=== PATIENT | male | born 1955 | race Hispanic/Latino ===

== ENCOUNTER 2018-08-13 09:32 | Inpatient (IN) | payer BC ==
--- NOTE | 2018-08-13 10:11 | ED PDOC ---
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 Patient informs noticing bright red blood with his bowel movement this morning, consistent with hemorrhoids, however, the bleeding progressively worsened as patient noticed wetness in his underwear. On aggrenox, plavix, asa 325 s/p stroke. Patient reports similar symptoms in the past but states symptoms are worse today. Patient denies any other associated somatic complaints. Patient denies any fevers, chills, headache, dizziness, chest pain, shortness of breath, dyspnea on exertion, cough, abdominal pain, nausea, vomiting, diarrhea, back pain, neck pain, or any other complaints. Time/Duration: 1-3 hours Symptom Onset: Gradual Symptom Course: Unchanged Activities at Onset: Light Context: Home Past Medical History - Provider Review Nursing Documentation Reviewed: Yes - Cardiac Hx Hypertension: Yes - Neurological HX Cerebrovascular Accident: Yes (x 3) - Psychiatric Hx Substance Use: No - Surgical History Other/Comment: colorectal sx to repair rupture - Anesthesia Hx Anesthesia: Yes Hx Anesthesia Reactions: No Hx Malignant Hyperthermia: No Family/Social History - Physician Review Nursing Documentation Reviewed: Yes Family/Social History: No Known Family HX Smoking Status: Never Smoked Hx Alcohol Use: No Hx Substance Use: No Allergies/Home Meds Allergies/Adverse Reactions: Allergies No Known Allergies Allergy (Verified 08/13/18 09:48) Home Medications: Home Meds Medication Instructions Recorded Confirmed Aspirin [Aspirin EC] 325 mg PO DAILY 08/13/18 08/13/18 Aspirin/Dipyridamole [Aggrenox 1 cap PO BID 08/13/18 08/13/18 25-200 mg] Atorvastatin [Lipitor] 20 mg PO DAILY 08/13/18 08/13/18 Clopidogrel [Plavix] 75 mg PO DAILY 08/13/18 08/13/18 Lisinopril [Zestril] 2.5 mg PO DAILY 08/13/18 08/13/18 Metoprolol Tartrate [Lopressor] 50 mg PO DAILY 08/13/18 08/13/18 amLODIPine [Norvasc] 5 mg PO DAILY 08/13/18 08/13/18 Review of Systems - Physician Review All systems were reviewed & negative as marked: Yes - Review of Systems Constitutional: Normal. absent: Fevers Eyes: Normal ENT: Normal Respiratory: Normal. absent: SOB, Cough Cardiovascular: Normal. absent: Chest Pain, Palpitations Gastrointestinal: Hematochezia, Other (Rectal bleeding). absent: Abdominal Pain, Stool Changes, Diarrhea, Nausea, Vomiting, Appetite Changes, Hematemesis Genitourinary Male: Normal. absent: Dysuria, Hematuria, Urinary Output Changes Musculoskeletal: Normal. absent: Back Pain, Neck Pain Skin: Normal. absent: Rash Neurological: Normal. absent: Headache, Dizziness Endocrine: Normal. absent: Polyuria Hemo/Lymphatic: Normal Psychiatric: Normal. absent: Anxiety Physical Exam Vital Signs Reviewed: Yes Vital Signs Temp Pulse Resp BP Pulse Ox 08/13/18 09:32 98.6 F 82 18 136/80 96 Temperature: Afebrile Blood Pressure: Normal Pulse: Regular Respiratory Rate: Normal Appearance: Positive for: Well-Appearing, Non-Toxic, Comfortable Pain Distress: None Mental Status: Positive for: Alert and Oriented X 3 - Systems Exam Head: Present: Atraumatic, Normocephalic Pupils: Present: PERRL Extroacular Muscles: Present: EOMI Conjunctiva: Present: Normal Respiratory/Chest: Present: Clear to Auscultation, Good Air Exchange. No: Respiratory Distress, Accessory Muscle Use Cardiovascular: Present: Regular Rate and Rhythm, Normal S1, S2. No: Murmurs Abdomen: Present: Normal Bowel Sounds. No: Tenderness, Distention, Peritoneal Signs, Rebound, Guarding Rectal: Present: Gross Blood (bright red blood noted), Hemorrhoids (external hemorrhoids noted), Normal Rectal Tone. No: Rectal Tenderness, Fissures Back: Present: Normal Inspection. No: CVA Tenderness Upper Extremity: Present: Normal Inspection, Normal ROM, NORMAL PULSES, Neurovascularly Intact, Capillary Refill < 2s. No: Cyanosis, Edema, Temperature Abnormalties Lower Extremity: Present: Normal Inspection, NORMAL PULSES, Normal ROM, Neurovascularly Intact, Capillary Refill < 2 s. No: Edema, Temperature Abnormalties Neurological: Present: GCS=15, CN II-XII Intact, Speech Normal, Motor Func Grossly Intact, Normal Sensory Function, Gait Normal Skin: Present: Warm, Dry, Normal Color. No: Rashes Lymphatic: No: Cervical Adenopathy Psychiatric: Present: Alert, Oriented x 3, Normal Insight, Normal Concentration, Normal Affect, Normal Mood Medical Decision Making ED Course and Treatment: 08/13/18 10:10 Initial Plan: * CBC, CMP * Coags * Type and Screen * EKG * CXR * CTAbd/Pelvis with IV contrast * Rectal Exam * Reassess and Disposition EKG rate 73; NSR; Normal intervals; No STEMI, nonspecific ST/T wave changes Labwork unremarkable CT Abd/Pelvis non specific inflammatory findings CXR unremarkable Will admit for GI consult and to trend h/h secondary to surgical history. [id number] Fraser who accepted patient for inpatient admission with diagnosis of GI bleed. Asks for general surgery and GI consults. - Lab Interpretations Lab Results: 08/13/18 10:05 08/13/18 10:05 Lab Results 08/13/18 12:00: Blood Type Confirm A POSITIVE 08/13/18 11:00: Blood Type A POSITIVE, Antibody Screen Negative, BBK History Checked No verified bt 08/13/18 10:29: Urine Color Yellow, Urine Appearance Clear, Urine pH 6.0, Ur Specific Cass 1.020, Urine Protein Negative, Urine Glucose (UA) Negative, Urine Ketones Negative, Urine Blood Trace-intact H, Urine Nitrate Negative, Urine Bilirubin Negative, Urine Urobilinogen 0.2, Ur Leukocyte Esterase Negative, Urine RBC 5 - 10 H, Urine WBC 2 - 5, Ur Epithelial Cells 6 - 8 H 08/13/18 10:05: Troponin I < 0.01 08/13/18 10:05: PT 13.0 H, INR 1.15, APTT 29.9 08/13/18 10:05: Sodium 140, Potassium 4.6, Chloride 110 H, Carbon Dioxide 25, Anion Gap 10, BUN 25 H, Creatinine 1.0, Est GFR ( Amer) > 60, Est GFR (Non-Af Amer) > 60, Random Glucose 88, Calcium 9.4, Total Bilirubin 0.6, AST 25, ALT 33, Alkaline Phosphatase 59, Total Protein 6.7, Albumin 3.7, Globulin 3.0, Albumin/Globulin Ratio 1.3 08/13/18 10:05: WBC 10.9, RBC 5.79, Hgb 16.2, Hct 48.8, MCV 84.3, MCH 28.0, MCHC 33.2, RDW 13.0, Plt Count 278, MPV 9.9, Neut % (Auto) 64.4, Lymph % (Auto) 21.9 L, Callahan % (Auto) 10.5 H, Eos % (Auto) 2.8, Baso % (Auto) 0.4, Lymph # (Auto) 2.4, Callahan # (Auto) 1.2 H, Eos # (Auto) 0.3, Baso # (Auto) 0.04, Absolute Neuts (auto) 7.03 H I have reviewed the lab results: Yes - RAD Interpretation Narrative RAD Interpretations (Text): 08/13/18 13:43 Chest X-ray reviewed by radiologist, shows: FINDINGS: LUNGS: No active pulmonary disease. PLEURA: No significant pleural effusion identified, no pneumothorax apparent. CARDIOVASCULAR: No aortic atherosclerotic calcification present. Normal cardiac size. No pulmonary vascular congestion. OSSEOUS STRUCTURES: No significant abnormalities. VISUALIZED UPPER ABDOMEN: Normal. OTHER FINDINGS: None. IMPRESSION: No acute cardiopulmonary disease appreciated. 08/13/18 14:11 CT of Abdomen/Pelvis reviewed by radiologist, shows: FINDINGS: LOWER THORAX: Heart size is within range of normal. No significant pericardial effusion. Small hiatal hernia of with wall thickening of distal esophagus likely due to protrusion gastric mucosa. Esophagitis not excluded. Mild passive/dependent type atelectasis both posterior lower lung herndon. No evidence of effusion or basilar pneumothorax. LIVER: Liver is mildly enlarged measuring over 19 cm in CC dimension. Mild fatty hepatic infiltration GALLBLADDER AND BILE DUCTS: Gallbladder is incompletely distended which presumably accounts for slight thick-walled appearance. No evidence of intraluminal gallbladder calculi. PANCREAS: Pancreas is atrophic and fatty replaced.. There appears to be two duodenal diverticulum adjacent to the pancreatic head containing air and fluid. SPLEEN: Unremarkable. No splenomegaly. ADRENALS: Unremarkable. KIDNEYS AND URETERS: Unremarkable. No stone or hydronephrosis. BLADDER: Urinary bladder is incompletely distended which may in part account for slight thick-walled appearance. Muscular hypertrophy presumably contributes. Correlation with urinalysis recommended to exclude cystitis or other intrinsic wall lesion. REPRODUCTIVE: Prostate gland is enlarged measuring approximately 5.6 cm in transverse dimension. Findings likely due to BPH however correlation with PSA recommended to exclude prostate carcinoma. APPENDIX: Normal-appearing appendix. BOWEL: Evaluation of the bowel is somewhat limited due to the lack of oral contrast material. The stomach is incompletely distended with slight thick-walled appearance. There appears to be 2 duodenal diverticulum adjacent to the pancreatic head containing air and fluid. The remaining visualized loops of small bowel exhibit normal contour and caliber with no evidence of acute mechanical small bowel obstruction. There is a moderate amount of stool seen within the cecum ascending and most of the transverse colon with lesser amount seen throughout the remaining colon including the rectum. Findings suggest mild fecal retention/constipation.. Probable anastomosis involving the proximal aspect of a redundant sigmoid colon. Questionable mild thickening of the distal rectal/anal junction. Clinical correlation with physical exam recommended. Proctoscopy or sigmoidoscopy may be prudent. PERITONEUM: Unremarkable. No fluid collection. No free air. LYMPH NODES: Unremarkable. No enlarged lymph nodes. VASCULATURE: Unremarkable. No aortic aneurysm. No aortic atherosclerotic calcification or mural plaque present. BONES: Multilevel degenerative spondylosis of the lower thoracic and lumbar spine. No acute compression fractures no retropulsed fragments. OTHER FINDINGS: None. IMPRESSION: Findings consistent with constipation. There appears to be some minimal wall thickening of the distal rectal/anal junction. Clinical correlation with physical exam recommended. Proctoscopy/sigmoidoscopy may be prudent for further evaluation if necessary. There is an anastomosis seen involving the proximal aspect of a redundant sigmoid colon Suspect 2 duodenal diverticula adjacent to the pancreatic head containing air- fluid Mild hepatomegaly with fatty infiltration. Note made of apparent air within the distal common bile duct and prox suspected air in a slightly prominent proximal pancreatic duct Enlarged prostate gland likely due to BPH however correlation with PSA recommended. Audiology Director: Radiologist - EKG Interpretation EKG Interpretation (Text): Rate 73l NSR; Normal intervals; No STEMI, nonspecific ST/T wave changes Interpreted by ED Physician: Yes Type: 12 lead EKG Comparison: Similar to previous EKG - PA / MAID SUPERVISOR / Resident Statement MD/DO has reviewed & agrees with the documentation as recorded. MD/DO has examined the patient and agrees with the treatment plan. - Scribe Statement The provider has reviewed the documentation as recorded by the Scribe Dasha Pike. All medical record entries made by the Kassandraibeduardo were at my direction and personally dictated by me. I have reviewed the chart and agree that the record accurately reflects my personal performance of the history, physical exam, medical decision making, and the department course for this patient. I have also personally directed, reviewed, and agree with the discharge instructions and disposition. Disposition/Present on Arrival - Present on Arrival Any Indicators Present on Arrival: No History of DVT/PE: No History of Uncontrolled Diabetes: No Urinary Catheter: No History of Decub. Ulcer: No History Surgical Site Infection Following: None - Disposition Have Diagnosis and Disposition been Completed?: Yes Diagnosis: Lower GI bleed Disposition: HOSPITALIZED Disposition Time: 16:35 Patient Plan: Admission Patient Problems: Current Active Problems Problem Status Onset Lower GI bleed Acute Condition: STABLE
[2018-08-13 10:16] LABS: BASO # 0.04 K/mm3 (0.0-2.0); BASO % 0.4 % (0.0-3.0); EOS # 0.3 (0.0-0.7); EOS % 2.8 % (1.5-5.0); HEMOGLOBIN 16.2 g/dL (14.0-18.0); LYMPH # 2.4 (1.2-3.4); LYMPH % 21.9 % (22.0-35.0); MEAN CELL VOLUME 84.3 fl (80.0-105.0); MEAN CORPUSCULAR HGB CONC 33.2 g/dl (31.0-37.0); MEAN PLATELET VOLUME 9.9 fl (7.0-11.0); MONO # 1.2 (0.1-0.6); MONO % 10.5 % (1.0-6.0); RBC 5.79 10^6/uL (3.5-6.1); WHITE BLOOD COUNT 10.9 10^3/uL (4.5-11.0)
[2018-08-13 10:22] LABS: INR 1.15; PARTIAL THROMBOPLASTIN TIME 29.9 Seconds (26.9-38.3)
[2018-08-13 10:30] LABS: BLOOD UREA NITROGEN 25 mg/dL (7-21); CALCIUM 9.4 mg/dL (8.4-10.5); GFR NON-AFRICAN AMERICAN > 60
[2018-08-13 10:34] LABS: ALB/GLOB RATIO 1.3 (1.1-1.8); ALBUMIN 3.7 g/dL (3.0-4.8); ALT/SGPT 33 U/L (7-56); AST/SGOT 25 U/L (17-59)
--- NOTE | 2018-08-13 11:31 | CARD ---
APPROVED REPORT Date of service: 08/13/2018 EKG Measurement Heart [id number] <Conclusion> Normal sinus rhythm Inferior infarct Old. Abnormal ECG
--- NOTE | 2018-08-13 11:40 | RAD ---
Date of service: 08/13/2018 HISTORY: rectal bleeding COMPARISON: No prior. FINDINGS: LUNGS: No active pulmonary disease. PLEURA: No significant pleural effusion identified, no pneumothorax apparent. CARDIOVASCULAR: No aortic atherosclerotic calcification present. Normal cardiac size. No pulmonary vascular congestion. OSSEOUS STRUCTURES: No significant abnormalities. VISUALIZED UPPER ABDOMEN: Normal. OTHER FINDINGS: None. IMPRESSION: No acute cardiopulmonary disease appreciated.
--- NOTE | 2018-08-13 14:09 | CT ---
Date of service: 08/13/2018 PROCEDURE: CT Abdomen and Pelvis. HISTORY: rectal bleeding COMPARISON: None. TECHNIQUE: Contiguous axial images of the abdomen and pelvis. Oral contrast was administered. No IV contrast given. Coronal and Sagittal reformats generated. Radiation dose: Total exam DLP = 997.18 mGy-cm. This CT exam was performed using one or more of the following dose reduction techniques: Automated exposure control, adjustment of the mA and/or kV according to patient size, and/or use of iterative reconstruction technique. FINDINGS: LOWER THORAX: Heart size is within range of normal. No significant pericardial effusion. Small hiatal hernia of with wall thickening of distal esophagus likely due to protrusion gastric mucosa. Esophagitis not excluded. Mild passive/dependent type atelectasis both posterior lower lung herndon. No evidence of effusion or basilar pneumothorax. LIVER: Liver is mildly enlarged measuring over 19 cm in CC dimension. Mild fatty hepatic infiltration GALLBLADDER AND BILE DUCTS: Gallbladder is incompletely distended which presumably accounts for slight thick-walled appearance. No evidence of intraluminal gallbladder calculi. PANCREAS: Pancreas is atrophic and fatty replaced.. There appears to be two duodenal diverticulum adjacent to the pancreatic head containing air and fluid. SPLEEN: Unremarkable. No splenomegaly. ADRENALS: Unremarkable. KIDNEYS AND URETERS: Unremarkable. No stone or hydronephrosis. BLADDER: Urinary bladder is incompletely distended which may in part account for slight thick-walled appearance. Muscular hypertrophy presumably contributes. Correlation with urinalysis recommended to exclude cystitis or other intrinsic wall lesion. REPRODUCTIVE: Prostate gland is enlarged measuring approximately 5.6 cm in transverse dimension. Findings likely due to BPH however correlation with PSA recommended to exclude prostate carcinoma. APPENDIX: Normal-appearing appendix. BOWEL: Evaluation of the bowel is somewhat limited due to the lack of oral contrast material. The stomach is incompletely distended with slight thick-walled appearance. There appears to be 2 duodenal diverticulum adjacent to the pancreatic head containing air and fluid. The remaining visualized loops of small bowel exhibit normal contour and caliber with no evidence of acute mechanical small bowel obstruction. There is a moderate amount of stool seen within the cecum ascending and most of the transverse colon with lesser amount seen throughout the remaining colon including the rectum. Findings suggest mild fecal retention/constipation.. Probable anastomosis involving the proximal aspect of a redundant sigmoid colon. Questionable mild thickening of the distal rectal/anal junction. Clinical correlation with physical exam recommended. Proctoscopy or sigmoidoscopy may be prudent. PERITONEUM: Unremarkable. No fluid collection. No free air. LYMPH NODES: Unremarkable. No enlarged lymph nodes. VASCULATURE: Unremarkable. No aortic aneurysm. No aortic atherosclerotic calcification or mural plaque present. BONES: Multilevel degenerative spondylosis of the lower thoracic and lumbar spine. No acute compression fractures no retropulsed fragments. OTHER FINDINGS: None. IMPRESSION: Findings consistent with constipation. There appears to be some minimal wall thickening of the distal rectal/anal junction. Clinical correlation with physical exam recommended. Proctoscopy/sigmoidoscopy may be prudent for further evaluation if necessary. There is an anastomosis seen involving the proximal aspect of a redundant sigmoid colon Suspect 2 duodenal diverticula adjacent to the pancreatic head containing air-fluid Mild hepatomegaly with fatty infiltration. Note made of apparent air within the distal common bile duct and prox suspected air in a slightly prominent proximal pancreatic duct Enlarged prostate gland likely due to BPH however correlation with PSA recommended.
--- NOTE | 2018-08-13 16:48 | CP.PCM.CON ---
History of Present Illness - History of Present Illness History of Present Illness: Surgery consult note, Dr Fletcher Reason for consult: rectal bleeding 63 y/o male with PMH of CVA x3 on AC, colorectal surgery s/p colon rupture and sepsis presents to ED with 1 day of bright red rectal bleeding while having bowel movement . Patient Past Patient History - Past Social History Smoking Status: Never Smoked - CARDIAC Hx Hypertension: Yes - NEUROLOGICAL HX Cerebrovascular Accident: Yes (x 3) - PSYCHIATRIC Hx Substance Use: No - SURGICAL HISTORY Other/Comment: colorectal sx to repair rupture - ANESTHESIA Hx Anesthesia: Yes Hx Anesthesia Reactions: No Hx Malignant Hyperthermia: No Meds Allergies/Adverse Reactions: Allergies Allergy/AdvReac Type Severity Reaction Status Date / Time No Known Allergies Allergy Verified 08/13/18 09:48 Results - Vital Signs Recent Vital Signs: Last Vital Signs Temp 98.2 F 08/13/18 15:41 Pulse 62 08/13/18 15:41 Resp 18 08/13/18 15:41 BP 118/77 08/13/18 15:41 Pulse Ox 98 08/13/18 15:41 - Labs Result Diagrams: 08/13/18 10:05 08/13/18 10:05 Labs: Laboratory Results - last 24 hr 08/13/18 08/13/18 08/13/18 10:05 10:05 10:05 WBC 10.9 RBC 5.79 Hgb 16.2 Hct 48.8 MCV 84.3 MCH 28.0 MCHC 33.2 RDW 13.0 Plt Count 278 MPV 9.9 Neut % (Auto) 64.4 Lymph % (Auto) 21.9 L Arthur % (Auto) 10.5 H Eos % (Auto) 2.8 Baso % (Auto) 0.4 Lymph # (Auto) 2.4 Arthur # (Auto) 1.2 H Eos # (Auto) 0.3 Baso # (Auto) 0.04 Absolute Neuts (auto) 7.03 H PT 13.0 H INR 1.15 APTT 29.9 Sodium 140 Potassium 4.6 Chloride 110 H Carbon Dioxide 25 Anion Gap 10 BUN 25 H Creatinine 1.0 Est GFR ( Amer) > 60 Est GFR (Non-Af Amer) > 60 Random Glucose 88 Calcium 9.4 Total Bilirubin 0.6 AST 25 ALT 33 Alkaline Phosphatase 59 Troponin I Total Protein 6.7 Albumin 3.7 Globulin 3.0 Albumin/Globulin Ratio 1.3 Blood Type Blood Type Confirm Antibody Screen BBK History Checked 08/13/18 08/13/18 08/13/18 10:05 11:00 12:00 WBC RBC Hgb Hct MCV MCH MCHC RDW Plt Count MPV Neut % (Auto) Lymph % (Auto) Arthur % (Auto) Eos % (Auto) Baso % (Auto) Lymph # (Auto) Arthur # (Auto) Eos # (Auto) Baso # (Auto) Absolute Neuts (auto) PT INR APTT Sodium Potassium Chloride Carbon Dioxide Anion Gap BUN Creatinine Est GFR ( Amer) Est GFR (Non-Af Amer) Random Glucose Calcium Total Bilirubin AST ALT Alkaline Phosphatase Troponin I < 0.01 Total Protein Albumin Globulin Albumin/Globulin Ratio Blood Type A POSITIVE Blood Type Confirm A POSITIVE Antibody Screen Negative BBK History Checked No verified bt
[2018-08-13] MEDS: Dextrose 5%/0.45% NS 1,000 ML IV SCH (18:04)
[2018-08-13 18:51] LABS: URINE BILIRUBIN NEGATIVE (NEGATIVE); URINE BLOOD TRACE-INTACT (NEGATIVE); URINE GLUCOSE (UA) NEGATIVE (NEGATIVE); URINE LEUKOCYTE ESTERASE NEGATIVE Leu/uL (NEGATIVE); URINE PROTEIN NEGATIVE mg/dL (<30 mg/dL); URINE UROBILINOGEN 0.2 E.U./dL (<1 E.U./dL)
[2018-08-13 19:09] LABS: URINE APPEARANCE CLEAR (CLEAR); URINE COLOR YELLOW (YELLOW)
--- NOTE | 2018-08-13 20:33 | CP.PCM.CON ---
History of Present Illness - History of Present Illness History of Present Illness: Surgery Consult note- Dr. Fletcher Reason for Consult: Rectal Bleeding 63M pmhx significant for CVA x 4 last one 4 months ago, on blood thinners including aggrenox, plavix, asa 325, hx of abd surgery 25 years ago from "infected rectum" and removed colon and colostomy, and reversal x2, recently [address] [facility] w/ bright red blood coming out of his rectum. Patient states that he was walking around when he felt warmth, the noticed blood. He denies light headedness, dizziness, shortness of breath. Patient never had symptoms like this in the past. Denies any local trauma to the area. 12 pt ROS conducted, negative otherwise stated above PMH: HTN, HLD, CVA w/ minimal residual left sided weakness of on AC (aggrenox, plavix, ASA 325) PSH: Colon surgery x4. "infected colon". Colostomy and reversal 25 years ago. T hen Removal of colon colostomy and reversal appox 15 years ago ALL: NKDA SocialHx: denies tobacco, etoh, recreational drug use FH: non-contributory Review of Systems - Review of Systems All systems: reviewed and no additional remarkable complaints except - Constitutional Constitutional: As Per HPI Past Patient History - Past Social History Smoking Status: Never Smoked - CARDIAC Hx Hypertension: Yes - NEUROLOGICAL HX Cerebrovascular Accident: Yes (x 3) - PSYCHIATRIC Hx Substance Use: No - SURGICAL HISTORY Other/Comment: colorectal sx to repair rupture - ANESTHESIA Hx Anesthesia: Yes Hx Anesthesia Reactions: No Hx Malignant Hyperthermia: No Meds Allergies/Adverse Reactions: Allergies Allergy/AdvReac Type Severity Reaction Status Date / Time No Known Allergies Allergy Verified 08/13/18 09:48 - Medications Medications: Current Medications Amlodipine Besylate (Norvasc) 5 mg PO DAILY [facility] Last Admin: 08/13/18 18:04 Dose: Not Given Atorvastatin Calcium (Lipitor) 20 mg PO DIN [facility] Last Admin: 08/13/18 18:04 Dose: Not Given Dextrose/Sodium Chloride (Dextrose 5%/0.45% Ns 1000 Ml) 1,000 mls @ 75 mls/hr IV .[id number] [facility] Last Admin: 08/13/18 18:04 Dose: 75 mls/hr Lisinopril (Zestril) 2.5 mg PO DAILY [facility] Last Admin: 08/13/18 18:04 Dose: Not Given Metoprolol Tartrate (Lopressor) 50 mg PO DAILY [facility] Last Admin: 08/13/18 18:04 Dose: Not Given Polyethylene Glycol (Miralax) 17 gm PO DAILY [facility] Physical Exam - Constitutional Appears: Non-toxic, No Acute Distress - Head Exam Head Exam: ATRAUMATIC - Eye Exam Eye Exam: EOMI. absent: Scleral icterus - ENT Exam ENT Exam: Mucous Membranes Moist - Respiratory Exam Respiratory Exam: NORMAL BREATHING PATTERN. absent: Accessory Muscle Use, Respiratory Distress - Cardiovascular Exam Cardiovascular Exam: REGULAR RHYTHM. absent: Bradycardia, Tachycardia - GI/Abdominal Exam GI & Abdominal Exam: Soft. absent: Firm, Guarding, Hernia, Tenderness Additional comments: Midline incision well healed. Old stoma location well healed. no induration or bleeding - Rectal Exam Additional comments: No bright red blood on rectal exam. No palpable masses likely fissure at the posterior portion of the anus - Extremities Exam Extremities exam: Negative for: calf tenderness - Neurological Exam Neurological exam: Alert, Oriented x3 - Psychiatric Exam Psychiatric exam: Normal Affect - Skin Skin Exam: Intact, Warm Results - Vital Signs Recent Vital Signs: Last Vital Signs Temp 98.8 F 08/13/18 17:37 Pulse 62 08/13/18 17:37 Resp 18 08/13/18 17:37 BP 124/78 08/13/18 17:37 Pulse Ox 98 08/13/18 17:37 - Labs Result Diagrams: 08/13/18 10:05 08/13/18 10:05 Labs: Laboratory Results - last 24 hr 08/13/18 08/13/18 08/13/18 10:05 10:05 10:05 WBC 10.9 RBC 5.79 Hgb 16.2 Hct 48.8 MCV 84.3 MCH 28.0 MCHC 33.2 RDW 13.0 Plt Count 278 MPV 9.9 Neut % (Auto) 64.4 Lymph % (Auto) 21.9 L Thomas % (Auto) 10.5 H Eos % (Auto) 2.8 Baso % (Auto) 0.4 Lymph # (Auto) 2.4 Thomas # (Auto) 1.2 H Eos # (Auto) 0.3 Baso # (Auto) 0.04 Absolute Neuts (auto) 7.03 H PT 13.0 H INR 1.15 APTT 29.9 Sodium 140 Potassium 4.6 Chloride 110 H Carbon Dioxide 25 Anion Gap 10 BUN 25 H Creatinine 1.0 Est GFR ( Amer) > 60 Est GFR (Non-Af Amer) > 60 Random Glucose 88 Calcium 9.4 Total Bilirubin 0.6 AST 25 ALT 33 Alkaline Phosphatase 59 Troponin I Total Protein 6.7 Albumin 3.7 Globulin 3.0 Albumin/Globulin Ratio 1.3 Urine Color Urine Appearance Urine pH Ur Specific [place] Urine Protein Urine Glucose (UA) Urine Ketones Urine Blood Urine Nitrate Urine Bilirubin Urine Urobilinogen Ur Leukocyte Esterase Urine RBC Urine WBC Ur Epithelial Cells Blood Type Blood Type Confirm Antibody Screen BBK History Checked 08/13/18 08/13/18 08/13/18 10:05 10:29 11:00 WBC RBC Hgb Hct MCV MCH MCHC RDW Plt Count MPV Neut % (Auto) Lymph % (Auto) Thomas % (Auto) Eos % (Auto) Baso % (Auto) Lymph # (Auto) Thomas # (Auto) Eos # (Auto) Baso # (Auto) Absolute Neuts (auto) PT INR APTT Sodium Potassium Chloride Carbon Dioxide Anion Gap BUN Creatinine Est GFR ( Amer) Est GFR (Non-Af Amer) Random Glucose Calcium Total Bilirubin AST ALT Alkaline Phosphatase Troponin I < 0.01 Total Protein Albumin Globulin Albumin/Globulin Ratio Urine Color Yellow Urine Appearance Clear Urine pH 6.0 Ur Specific [place] 1.020 Urine Protein Negative Urine Glucose (UA) Negative Urine Ketones Negative Urine Blood Trace-intact H Urine Nitrate Negative Urine Bilirubin Negative Urine Urobilinogen 0.2 Ur Leukocyte Esterase Negative Urine RBC 5 - 10 H Urine WBC 2 - 5 Ur Epithelial Cells 6 - 8 H Blood Type A POSITIVE Blood Type Confirm Antibody Screen Negative BBK History Checked No verified bt 08/13/18 12:00 WBC RBC Hgb Hct MCV MCH MCHC RDW Plt Count MPV Neut % (Auto) Lymph % (Auto) Thomas % (Auto) Eos % (Auto) Baso % (Auto) Lymph # (Auto) Thomas # (Auto) Eos # (Auto) Baso # (Auto) Absolute Neuts (auto) PT INR APTT Sodium Potassium Chloride Carbon Dioxide Anion Gap BUN Creatinine Est GFR ( Amer) Est GFR (Non-Af Amer) Random Glucose Calcium Total Bilirubin AST ALT Alkaline Phosphatase Troponin I Total Protein Albumin Globulin Albumin/Globulin Ratio Urine Color Urine Appearance Urine pH Ur Specific [place] Urine Protein Urine Glucose (UA) Urine Ketones Urine Blood Urine Nitrate Urine Bilirubin Urine Urobilinogen Ur Leukocyte Esterase Urine RBC Urine WBC Ur Epithelial Cells Blood Type Blood Type Confirm A POSITIVE Antibody Screen BBK History Checked Assessment & Plan - Assessment and Plan (Free Text) Assessment: 63M pmhx for CVA on multiple blood thinners, admitted for rectal bleeding; Plan: - repeat CBC - IVF - trend H/H - Transfuse PRN - will need colonoscopy; recommend GI consult - will continue to monitor closely - no acute surgical intervention at this time - d/w Dr. Fletcher [facility]
--- NOTE | 2018-08-13 22:04 | HP ---
DATE OF EXAM: 08/13/2018 HISTORY OF PRESENT ILLNESS: The patient is a 63-year-old, the patient came to emergency room because of two-day history of rectal bleeding complained abdominal discomfort; however, he has a history of hemorrhoid. The patient does have history of colorectal surgery and he said he has some colon resection that his colon ruptured and he also had . Denies any nausea or vomiting. No history of weight loss. PAST MEDICAL HISTORY: Significant for: 1. CVA thrice. 2. Hypertension. 3. Hyperlipidemia. ALLERGIES: THE PATIENT IS NOT ALLERGIC TO ANY MEDICATIONS. MEDICATIONS AT HOME: He is on: 1. Aggrenox. 2. Aspirin 325 daily. 3. Norvasc 5 mg daily. 4. Metoprolol 50 mg daily. 5. Lisinopril 2.5 daily. 6. Atorvastatin 20 mg daily. 7. Plavix 75 daily. SOCIAL HISTORY: Denies smoking, drinking, or alcohol use. REVIEW OF SYSTEMS: Positive for rectal bleeding, rectal discomfort. PHYSICAL EXAMINATION: GENERAL: He is awake, alert, oriented, and able to communicate. VITAL SIGNS: He is afebrile, pulse 62, respirations 18, and blood pressure 124/78. LUNGS: Bilateral fair airflow. No rhonchi or crackle. HEART: S1 and S2 audible. ABDOMEN: Soft and nontender. No rebound. No guarding. NEUROLOGIC: The patient is awake, alert, oriented, able to communicate, positive bleeding per rectum, but not actively bleeding. LABORATORY DATA: WBC is 10.9, hemoglobin 16, hematocrit 48, and platelets 278. PT 13 and INR 1.15. Chemistry; sodium 140, potassium 4.6, chloride 110, CO2 of 25, BUN 25, and creatinine 1. Blood sugar 88. LFTs are within normal limits. Urine positive, leukocyte negative, and RBC [address] scan of the abdomen and pelvis was done that shows constipation, some minimal wall thickening of the distal rectal-anal junction. There is anastomosis involving the proximal aspect of redundant sigmoid colon and also enlarged prostate due to BPH. ASSESSMENT: 1. Rectal bleeding probably secondary to constipation. 2. History of colorectal cancer. 3. History of cerebrovascular accident. PLAN: We will keep the patient n.p.o. We will give IV fluids. We will hold antiplatelets. Gave him MiraLax, awaiting Gastrointestinal and Surgical evaluation. Adalberto Frasre MD
[2018-08-13 22:55] VITALS: BMI 29.2
[2018-08-13] MEDS ORDERED: Influenza Vaccine 60 mcg/0.5 mL SYR (4YR UP) IM ONE (22:55)
[2018-08-13] MEDS ORDERED: Pneumococcal 23-Valent Vaccine IM ONE (22:55)
[2018-08-14 07:22] LABS: BASO # 0.02 K/mm3 (0.0-2.0); BASO % 0.2 % (0.0-3.0); EOS # 0.4 (0.0-0.7); EOS % 3.9 % (1.5-5.0); HEMOGLOBIN 14.8 g/dL (14.0-18.0); LYMPH # 2.2 (1.2-3.4); LYMPH % 24.7 % (22.0-35.0); MEAN CELL VOLUME 84.6 fl (80.0-105.0); MEAN CORPUSCULAR HEMOGLOBIN 27.2 pg (25.0-35.0); MEAN CORPUSCULAR HGB CONC 32.1 g/dl (31.0-37.0); MEAN PLATELET VOLUME 9.2 fl (7.0-11.0); MONO # 0.6 (0.1-0.6); MONO % 6.8 % (1.0-6.0); RBC 5.45 10^6/uL (3.5-6.1)
[2018-08-14 07:33] LABS: ALB/GLOB RATIO 1.1 (1.1-1.8); ALBUMIN 3.3 g/dL (3.0-4.8); ALT/SGPT 28 U/L (7-56); AST/SGOT 23 U/L (17-59); BLOOD UREA NITROGEN 19 mg/dL (7-21); CALCIUM 8.8 mg/dL (8.4-10.5); GFR NON-AFRICAN AMERICAN > 60
--- NOTE | 2018-08-14 09:46 | CP.PCM.PN ---
Subjective - Date & Time of Evaluation Date of Evaluation: 08/14/18 Time of Evaluation: 07:30 - Subjective Subjective: Surgery progress note, Dr. Fletcher Patient seen and examined at bedside. He reports minimal tinged blood when he wipes after having BM. He is tolerating diet, ambulating OOB and has regular BM. Patient denied fever, chills, abd pain, change in bowel movement. Objective - Vital Signs/Intake and Output Vital Signs (last 24 hours): Temp Pulse Resp BP Pulse Ox 97.6 F 64 20 125/81 98 08/13/18 23:35 08/14/18 05:56 08/13/18 23:35 08/13/18 23:35 08/13/18 23:35 Intake and Output: 08/14/18 08/14/18 06:59 18:59 Intake Total 2039 Balance 2039 - Medications Medications: Current Medications Amlodipine Besylate (Norvasc) 5 mg PO DAILY [facility] Last Admin: 08/13/18 18:04 Dose: Not Given Atorvastatin Calcium (Lipitor) 20 mg PO DIN [facility] Last Admin: 08/13/18 18:04 Dose: Not Given Dextrose/Sodium Chloride (Dextrose 5%/0.45% Ns 1000 Ml) 1,000 mls @ 75 mls/hr IV .[id number] [facility] Last Admin: 08/13/18 18:04 Dose: 75 mls/hr Lisinopril (Zestril) 2.5 mg PO DAILY [facility] Last Admin: 08/13/18 18:04 Dose: Not Given Metoprolol Tartrate (Lopressor) 50 mg PO DAILY [facility] Last Admin: 08/13/18 18:04 Dose: Not Given Polyethylene Glycol (Miralax) 17 gm PO DAILY [facility] - Labs Labs: 08/14/18 07:00 08/14/18 07:00 PT 13.0 SECONDS (9.4-12.5) H 08/13/18 10:05 INR 1.15 08/13/18 10:05 APTT 29.9 Seconds (26.9-38.3) 08/13/18 10:05 - Constitutional Appears: Well, No Acute Distress - Head Exam Head Exam: ATRAUMATIC, NORMAL INSPECTION, NORMOCEPHALIC - Eye Exam Eye Exam: EOMI, Normal appearance, PERRL Pupil Exam: NORMAL ACCOMODATION, PERRL - Respiratory Exam Respiratory Exam: Clear to Ausculation Bilateral, NORMAL BREATHING PATTERN - Cardiovascular Exam Cardiovascular Exam: REGULAR RHYTHM, +S1, +S2. absent: Murmur - GI/Abdominal Exam GI & Abdominal Exam: Soft, Normal Bowel Sounds. absent: Guarding, Rigid, Tenderness, Hernia, Mass, Organomegaly Additional comments: Midline incision well healed. Old stoma location well healed. no induration or bleeding - Rectal Exam Additional comments: multiple perianal skin tags, intact, no erythema, no signs of infection. normal sphincter tone - Extremities Exam Extremities Exam: Full ROM, Normal Capillary Refill, Normal Inspection. absent: Joint Swelling, Pedal Edema - Neurological Exam Neurological Exam: Alert, Awake, Oriented x3 - Psychiatric Exam Psychiatric exam: Normal Affect, Normal Mood - Skin Skin Exam: Dry, Intact, Normal Color, Warm Assessment and Plan - Assessment and Plan (Free Text) Assessment: 63 y/o male with PSH of colectomy/colostomy with reversal x2 admitted for lower GIB CVA x3 last one 4 months ago, on AC (aggrenox, plavix, asa 325) HTN HLD Plan: -patient is hemodynamically stable, afebrile, no leukocytosis and in NAD with no signs of active bleeding -H/H stable, continue to monitor -CT A/P: minimal wall thickening of the distal rectal/anal junction -GI consulted for possible endoscopy -transfuse prn -miralax for constipation -no acute surgical intervention at this time -further recs per surgical attending Dr. Chance Chase,
[2018-08-14] MEDS: POLYETHYLENE GLYCOL 3350 17 GM/Dose PACKET PO SCH (09:49)
[2018-08-14] MEDS: Dextrose 5%/0.45% NS 1,000 ML IV SCH ×2 (10:48→21:07)
--- NOTE | 2018-08-14 11:29 | CP.PCM.CON ---
History of Present Illness - History of Present Illness History of Present Illness: GI Consult Note for Dr. Garcia Reason for Consultation: Rectal Bleeding Patient is a 63 yo M with PMH of CVA x3, HTN, HLD, and perforated colon presents to [facility] due BRBPR prior to admission. Patient denies any prior GI bleeding even ts, fatigue, weakness, fever, or chills. Patient denies any pain associated with rectal bleeding. Patient states that bleeding continued while in the ED, but has stopped since. Patient reports normal, non-melanotic BM last night with no further bleeding. Patient's history significant due to "rectal infection" leading to perforation requiring colon surgery, colostomy, and eventual reversal 25 years ago. Patient states that due to complications of the surgery the anastomosis had to be revised and required another colostomy with eventual reversal about 15 years ago. Patient's last colonoscopy was about 12 years ago at [facility], but he does not remember the results. 12 point ROS reviewed and is neg ative other than what is stated in HPI. PMH: CVA x3, HTN, HLD, perforated colon Surg: Colon surgery, colostomy, reversal x2 All: NKDA SH: Former smoker; denied EtOH and illicit drug use FHx: No GI history Medications reviewed as per [facility] Review of Systems - Review of Systems All systems: reviewed and no additional remarkable complaints except (12 point ROS reviewed and is negative other than what is stated in HPI.) Past Patient History - Past Social History Smoking Status: Never Smoked - CARDIAC Hx Hypertension: Yes - PULMONARY Hx Respiratory Disorders: No - NEUROLOGICAL HX Cerebrovascular Accident: Yes (x 3) - HEENT Hx HEENT Problems: Yes (reading glasses) - RENAL Hx Chronic Kidney Disease: No - ENDOCRINE/METABOLIC Hx Endocrine Disorders: No - HEMATOLOGICAL/ONCOLOGICAL Hx Blood Disorders: Yes (sepsis) - INTEGUMENTARY Hx Dermatological Problems: No - MUSCULOSKELETAL/RHEUMATOLOGICAL Hx Falls: No - GASTROINTESTINAL Hx Gastrointestinal Disorders: Yes (hemorrhoids) Hx Colostomy: Yes Other/Comment: colorectal sx to repair rupture 1993 and 1994 developed sepsis, colostomy reversed 6 months later, the 10 yrs later about 2003, suturres ruptured from prior sx had a colostomy for few months then it was reversed - GENITOURINARY/GYNECOLOGICAL Hx Genitourinary Disorders: No - PSYCHIATRIC Hx Substance Use: No - SURGICAL HISTORY Other/Comment: colorectal sx to repair rupture - ANESTHESIA Hx Anesthesia: Yes Hx Anesthesia Reactions: No Hx Malignant Hyperthermia: No Meds Allergies/Adverse Reactions: Allergies Allergy/AdvReac Type Severity Reaction Status Date / Time No Known Allergies Allergy Verified 08/13/18 09:48 - Medications Medications: Current Medications Amlodipine Besylate (Norvasc) 5 mg PO DAILY [facility] Last Admin: 08/14/18 09:50 Dose: 5 mg Atorvastatin Calcium (Lipitor) 20 mg PO DIN [facility] Last Admin: 08/13/18 18:04 Dose: Not Given Bisacodyl (Dulcolax) 5 mg PO ONCE ONE Stop: 08/14/18 18:01 Dextrose/Sodium Chloride (Dextrose 5%/0.45% Ns 1000 Ml) 1,000 mls @ 75 mls/hr IV .[id number] [facility] Last Admin: 08/14/18 10:48 Dose: 75 mls/hr Lisinopril (Zestril) 2.5 mg PO DAILY [facility] Last Admin: 08/14/18 09:51 Dose: 2.5 mg Metoprolol Tartrate (Lopressor) 50 mg PO DAILY [facility] Last Admin: 08/14/18 09:52 Dose: Not Given Polyethylene Glycol (Miralax) 17 gm PO DAILY [facility] Last Admin: 08/14/18 09:49 Dose: 17 gm Polyethylene Glycol/Electrolytes (Golytely) 4,000 ml PO ONCE ONE Stop: 08/14/18 18:01 Physical Exam - Constitutional Appears: No Acute Distress - Head Exam Head Exam: NORMAL INSPECTION - Eye Exam Eye Exam: Normal appearance - ENT Exam ENT Exam: Mucous Membranes Moist - Neck Exam Neck exam: Positive for: Normal Inspection - Respiratory Exam Respiratory Exam: Clear to Auscultation Bilateral. absent: Rales, Rhonchi, Wheezes - Cardiovascular Exam Cardiovascular Exam: RRR. absent: Diastolic murmur, Gallop, Rubs, Systolic Murmur - GI/Abdominal Exam GI & Abdominal Exam: Soft. absent: Distended, Guarding, Rebound, Tenderness - Rectal Exam Rectal Exam: absent: Black Stool, Bloody Stool Additional comments: no blood appreciated; skin tag - Extremities Exam Extremities exam: Positive for: normal inspection - Back Exam Back exam: NORMAL INSPECTION - Neurological Exam Neurological exam: Alert, Oriented x3 - Psychiatric Exam Psychiatric exam: Normal Affect, Normal Mood - Skin Skin Exam: Normal Color, Warm Results - Vital Signs Recent Vital Signs: Last Vital Signs Temp 97.6 F 08/13/18 23:35 Pulse 65 08/14/18 10:00 Resp 20 08/13/18 23:35 BP 125/78 08/14/18 09:52 Pulse Ox 98 08/13/18 23:35 - Labs Result Diagrams: 08/14/18 07:00 08/14/18 07:00 Labs: Laboratory Results - last 24 hr 08/13/18 08/13/18 08/13/18 10:29 11:00 12:00 WBC RBC Hgb Hct MCV MCH MCHC RDW Plt Count MPV Neut % (Auto) Lymph % (Auto) Carlton % (Auto) Eos % (Auto) Baso % (Auto) Lymph # (Auto) Carlton # (Auto) Eos # (Auto) Baso # (Auto) Absolute Neuts (auto) Sodium Potassium Chloride Carbon Dioxide Anion Gap BUN Creatinine Est GFR ( Amer) Est GFR (Non-Af Amer) Random Glucose Calcium Total Bilirubin AST ALT Alkaline Phosphatase Total Protein Albumin Globulin Albumin/Globulin Ratio Urine Color Yellow Urine Appearance Clear Urine pH 6.0 Ur Specific [place] 1.020 Urine Protein Negative Urine Glucose (UA) Negative Urine Ketones Negative Urine Blood Trace-intact H Urine Nitrate Negative Urine Bilirubin Negative Urine Urobilinogen 0.2 Ur Leukocyte Esterase Negative Urine RBC 5 - 10 H Urine WBC 2 - 5 Ur Epithelial Cells 6 - 8 H Blood Type A POSITIVE Blood Type Confirm A POSITIVE Antibody Screen Negative BBK History Checked No verified bt 08/14/18 08/14/18 07:00 07:00 WBC 9.0 RBC 5.45 Hgb 14.8 Hct 46.1 MCV 84.6 MCH 27.2 MCHC 32.1 RDW 13.0 Plt Count 237 MPV 9.2 Neut % (Auto) 64.4 Lymph % (Auto) 24.7 Carlton % (Auto) 6.8 H Eos % (Auto) 3.9 Baso % (Auto) 0.2 Lymph # (Auto) 2.2 Carlton # (Auto) 0.6 Eos # (Auto) 0.4 Baso # (Auto) 0.02 Absolute Neuts (auto) 5.77 Sodium 138 Potassium 4.1 Chloride 107 Carbon Dioxide 28 Anion Gap 7 L BUN 19 Creatinine 1.0 Est GFR ( Amer) > 60 Est GFR (Non-Af Amer) > 60 Random Glucose 99 Calcium 8.8 Total Bilirubin 0.7 AST 23 ALT 28 Alkaline Phosphatase 61 Total Protein 6.1 Albumin 3.3 Globulin 2.9 Albumin/Globulin Ratio 1.1 Urine Color Urine Appearance Urine pH Ur Specific [place] Urine Protein Urine Glucose (UA) Urine Ketones Urine Blood Urine Nitrate Urine Bilirubin Urine Urobilinogen Ur Leukocyte Esterase Urine RBC Urine WBC Ur Epithelial Cells Blood Type Blood Type Confirm Antibody Screen BBK History Checked Assessment & Plan - Assessment and Plan (Free Text) Assessment: 63 yo M with PMH of CVA, HTN, HLD, and colon perforation presents to [facility] for BRBPR. GI was consulted accordingly. 1. GI bleed 2. H/o CVA on antiplatelets Plan: - Plan for colonoscopy tomorrow - CLD then NPO after midnight - Bowel prep - Hold anti-platelets for now - Further medical management per primary Patient seen and discussed in detail with Dr. Garcia. Carloz Simeon, PGY2
--- NOTE | 2018-08-14 17:21 | PN ---
DATE: 08/14/2018 SUBJECTIVE: The patient is 63 years old, seen and examined. No more rectal bleeding since he was admitted yesterday. The patient states yesterday when he was getting ready for the day, he was shaving, he felt something trickling down his pajamas and when he wiped it, he said he was intermittently having rectal bleeding, but that was normal for him, but yesterday it was too much, so he came to the ER for further evaluation. He does have history of extensive colorectal surgery. I spoke to Dr. Daugherty and he thinks that the patient might have fissures that might be bleeding. Otherwise, there is no active bleeding. PHYSICAL EXAMINATION: VITAL SIGNS: The patient is afebrile, pulse 65, respirations 18, and blood pressure 125/78. LUNGS: Bilateral fair air flow, no rhonchi or crackles. HEART: S1 and S2 audible. ABDOMEN: Soft and nontender. No rebound, no guarding. NEUROLOGIC: The patient is awake, alert, and oriented, able to communicate. LABORATORY DATA: WBC 9, hemoglobin 14, hematocrit 46, and platelets 237. Chemistry; Sodium 138, potassium 4.1, chloride 107, CO2 of 29, BUN 19, creatinine 1, and blood sugar 199. ASSESSMENT: 1. Rectal bleeding, differential is anal fissure versus hemorrhoid versus colonic pathology. This patient has multiple extensive colorectal surgeries. 2. History of cerebrovascular accident. PLAN: We will start the patient on clear liquid diet and then he will be n.p.o. after midnight. We will hold antiplatelet therapy for now. After colonoscopy, further decision will be made. Adalberto Fraser MD
[2018-08-14] MEDS ORDERED: Peg-Electrolyte Oral Soln 4L (Golytely) PO ONE (18:00)
[2018-08-14] MEDS ORDERED: Bisacodyl 5mg EC Tab PO ONE (18:00)
--- NOTE | 2018-08-15 08:17 | PN ---
DATE: 08/13/2018 SUBJECTIVE: He has had a history of rectal bleeding, had two strokes. He is on a powerful anticoagulant. The patient is noted to have dark blood and melenic type stools. Hemoglobin is 16. No blood was given. Vital signs were stable. The SMA-18 is normal. CAT scan of the abdomen and pelvis is examined but personally read. They described it as ____ the patient. Questionable thickening of the rectoanal area, although I do not ____ the liver is enlarged as described with hepatomegaly and fatty infiltration, a large prostate, but is essentially normal for a site of bleeding. The patient was seen by GI, who will plan colonoscopy, upper endoscopy, etc., but for now nothing is planned. Possibly an upper endoscopy in the morning. Pedro Luis Fletcher MD
--- NOTE | 2018-08-15 10:16 | CP.PCM.PN ---
Subjective - Date & Time of Evaluation Date of Evaluation: 08/15/18 Time of Evaluation: 09:45 - Subjective Subjective: Surgery progress note, Dr. Fletcher Patient seen and examined at bedside. He reports no complaints. He is on bowel prep and waiting for colonscopy today. Patient denied fever, chills, abd pain, change in bowel movement. Objective - Vital Signs/Intake and Output Vital Signs (last 24 hours): Temp Pulse Resp BP Pulse Ox 98.0 F 69 18 119/86 97 08/15/18 06:00 08/15/18 06:00 08/15/18 06:00 08/15/18 06:00 08/15/18 06:00 Intake and Output: 08/15/18 08/15/18 06:59 18:59 Intake Total 1200 Output Total 650 Balance 550 - Medications Medications: Current Medications Amlodipine Besylate (Norvasc) 5 mg PO DAILY [facility] Last Admin: 08/14/18 09:50 Dose: 5 mg Atorvastatin Calcium (Lipitor) 20 mg PO DIN [facility] Last Admin: 08/14/18 18:13 Dose: 20 mg Dextrose/Sodium Chloride (Dextrose 5%/0.45% Ns 1000 Ml) 1,000 mls @ 75 mls/hr IV .[id number] [facility] Last Admin: 08/14/18 21:07 Dose: 75 mls/hr Lisinopril (Zestril) 2.5 mg PO DAILY [facility] Last Admin: 08/14/18 09:51 Dose: 2.5 mg Metoprolol Tartrate (Lopressor) 50 mg PO DAILY [facility] Last Admin: 08/14/18 09:52 Dose: Not Given Polyethylene Glycol (Miralax) 17 gm PO DAILY [facility] Last Admin: 08/14/18 09:49 Dose: 17 gm - Labs Labs: 08/14/18 07:00 08/14/18 07:00 PT 13.0 SECONDS (9.4-12.5) H 08/13/18 10:05 INR 1.15 08/13/18 10:05 APTT 29.9 Seconds (26.9-38.3) 08/13/18 10:05 - Additional Findings Additional findings: - Constitutional Appears: Well, No Acute Distress - Head Exam Head Exam: ATRAUMATIC, NORMAL INSPECTION, NORMOCEPHALIC - Eye Exam Eye Exam: EOMI, Normal appearance, PERRL Pupil Exam: NORMAL ACCOMODATION, PERRL - Respiratory Exam Respiratory Exam: Clear to Ausculation Bilateral, NORMAL BREATHING PATTERN - Cardiovascular Exam Cardiovascular Exam: REGULAR RHYTHM, +S1, +S2. absent: Murmur - GI/Abdominal Exam GI & Abdominal Exam: Soft, Normal Bowel Sounds. absent: Guarding, Rigid, Tenderness, Hernia, Mass, Organomegaly Additional comments: Midline incision well healed. Old stoma location well healed. no induration or bleeding - Rectal Exam Additional comments: multiple perianal skin tags, intact, no erythema, no signs of infection. normal sphincter tone - Extremities Exam Extremities Exam: Full ROM, Normal Capillary Refill, Normal Inspection. absent: Joint Swelling, Pedal Edema - Neurological Exam Neurological Exam: Alert, Awake, Oriented x3 - Psychiatric Exam Psychiatric exam: Normal Affect, Normal Mood - Skin Skin Exam: Dry, Intact, Normal Color, Warm Assessment and Plan - Assessment and Plan (Free Text) Assessment: 63 y/o male with PSH of colectomy/colostomy with reversal x2 admitted for lower GIB CVA x3 last one 4 months ago, on AC (aggrenox, plavix, asa 325) HTN HLD Plan: -patient is hemodynamically stable, afebrile, no leukocytosis and in NAD with no signs of active bleeding -colonscopy today by GI. f/u results -H/H stable, continue to monitor -CT A/P: minimal wall thickening of the distal rectal/anal junction -transfuse prn -no acute surgical intervention at this time -further recs per surgical attending Dr. Chance Chase, DO
[2018-08-15] MEDS: Dextrose 5%/0.45% NS 1,000 ML IV SCH ×2 (10:33→23:00)
[2018-08-15] MEDS: POLYETHYLENE GLYCOL 3350 17 GM/Dose PACKET PO SCH (10:46)
--- NOTE | 2018-08-15 13:43 | PN ---
DATE: 08/15/2018 SUBJECTIVE: The patient is 63 years old who came to the emergency room because of rectal bleeding. The patient is on blood thinner because of multiple previous strokes. The patient also has multiple surgeries in his colorectal area that led to colostomy, but it was reversed. The patient states he does have intermittent rectal bleeding, but the day he came to the emergency room, it was dripping a lot of blood, so he came for medical opinion. He is off oral antiplatelets. No active bleeding noted. He is scheduled for colonoscopy today. PHYSICAL EXAMINATION: GENERAL: On examination, he is awake, alert and oriented, n.p.o. for the procedure. VITAL SIGNS: He is afebrile, pulse 86, respirations 18, blood pressure 119/86. LUNGS: Bilateral fair air flow. No rhonchi or crackle. HEART: S1 and S2 audible. ABDOMEN: Soft, nontender, no rebound, no guarding. NEUROLOGIC: The patient is awake, alert, oriented. Able to communicate. EXTREMITIES: Moves all extremities. Bilateral legs, no edema. LABORATORY DATA: CT scan shows thickening in the rectosigmoid area. Enlarged prostate with hepatomegaly and fatty infiltration. ASSESSMENT: 1. Rectal bleeding. 2. History of cerebrovascular accident. 3. Hypertension. 4. Hyperlipidemia. PLAN: Currently, the patient is n.p.o. He is on IV fluids. He was getting colonic prep. His oral anticoagulant is on hold, that will be restarted after the colonoscopy. We will advance his diet if he has no more rectal bleeding. Depending on the results of the colonoscopy, further plans will be made and possibly discharge. Adalberto Fraser MD
[2018-08-15] MEDS ORDERED: Propofol 10 mg/ml Inj (20 ML) ONE (16:48)
[2018-08-15] MEDS ORDERED: ePHEDrine 50 mg/ml Inj ONE (17:38)
[2018-08-15] MEDS ORDERED: Sodium Chloride 0.9% 1,000 ML IV SCH (17:45)
[2018-08-16 01:18] VITALS: O2SAT 96
--- NOTE | 2018-08-16 09:47 | CP.PCM.PN ---
Subjective - Date & Time of Evaluation Date of Evaluation: 08/16/18 Time of Evaluation: 07:20 - Subjective Subjective: Surgery progress note, Dr. Fletcher Patient seen and examined at bedside. He reports no complaints. Patient denied fever, chills, abd pain, change in bowel movement, N/V/D Objective - Vital Signs/Intake and Output Vital Signs (last 24 hours): Temp Pulse Resp BP Pulse Ox 97.7 F 54 L 18 112/78 96 08/16/18 06:00 08/16/18 06:00 08/16/18 06:00 08/16/18 06:00 08/16/18 06:00 Intake and Output: 08/16/18 08/16/18 06:59 18:59 Intake Total 930 Output Total 604 Balance 326 - Medications Medications: Current Medications Amlodipine Besylate (Norvasc) 5 mg PO DAILY [facility] Last Admin: 08/15/18 10:46 Dose: 5 mg Atorvastatin Calcium (Lipitor) 20 mg PO DIN [facility] Last Admin: 08/15/18 17:08 Dose: Not Given Dextrose/Sodium Chloride (Dextrose 5%/0.45% Ns 1000 Ml) 1,000 mls @ 75 mls/hr IV .[id number] [facility] Last Admin: 08/15/18 23:00 Dose: Not Given Lisinopril (Zestril) 2.5 mg PO DAILY [facility] Last Admin: 08/15/18 10:47 Dose: 2.5 mg Metoprolol Tartrate (Lopressor) 50 mg PO DAILY [facility] Last Admin: 08/15/18 10:46 Dose: 50 mg Polyethylene Glycol (Miralax) 17 gm PO DAILY [facility] Last Admin: 08/15/18 10:46 Dose: Not Given - Labs Labs: 08/14/18 07:00 08/14/18 07:00 PT 13.0 SECONDS (9.4-12.5) H 08/13/18 10:05 INR 1.15 08/13/18 10:05 APTT 29.9 Seconds (26.9-38.3) 08/13/18 10:05 Assessment and Plan - Assessment and Plan (Free Text) Assessment: 63 y/o male with PSH of colectomy/colostomy with reversal x2 admitted for lower GIB CVA x3 last one 4 months ago, on AC (aggrenox, plavix, asa 325) HTN HLD Plan: -EGD (08/15) : superficial multiple gastric ulcer no bx taken as pt is on antiplatelet therapy -colonscopy (08/15) : internal hemorrhoids, no bx taken as pt is on antiplatelet therapy -H/H stable, continue to monitor -no acute surgical intervention at this time -surgery signing off the patient -further recs per surgical attending Dr. Chance Chase, DO
[2018-08-16] MEDS: Dextrose 5%/0.45% NS 1,000 ML IV SCH (10:19)
--- NOTE | 2018-08-16 11:21 | CP.PCM.PN ---
<Rosendo Garcia - Last Filed: 08/16/18 13:11> Subjective - Date & Time of Evaluation Date of Evaluation: 08/16/18 Time of Evaluation: 08:35 - Subjective Subjective: PGY-4 GI Fellow Prog Note Pt lying in bed when seen this AM. States he is doing well without any complaints; tolerating diet. Denied further signs of bleeding, abd pain, N/V. 5 point ROS negative other than stated above Objective - Vital Signs/Intake and Output Vital Signs (last 24 hours): Temp Pulse Resp BP Pulse Ox 97.7 F 76 18 135/80 96 08/16/18 06:00 08/16/18 10:18 08/16/18 06:00 08/16/18 10:18 08/16/18 06:00 Intake and Output: 08/16/18 08/16/18 06:59 18:59 Intake Total 930 Output Total 604 Balance 326 - Medications Medications: Current Medications Amlodipine Besylate (Norvasc) 5 mg PO DAILY [facility] Last Admin: 08/16/18 10:18 Dose: 5 mg Atorvastatin Calcium (Lipitor) 20 mg PO DIN [facility] Last Admin: 08/15/18 17:08 Dose: Not Given Dextrose/Sodium Chloride (Dextrose 5%/0.45% Ns 1000 Ml) 1,000 mls @ 75 mls/hr IV .[id number] [facility] Last Admin: 08/16/18 10:19 Dose: 75 mls/hr Lisinopril (Zestril) 2.5 mg PO DAILY [facility] Last Admin: 08/16/18 10:18 Dose: 2.5 mg Metoprolol Tartrate (Lopressor) 50 mg PO DAILY [facility] Last Admin: 08/16/18 10:18 Dose: 50 mg Polyethylene Glycol (Miralax) 17 gm PO DAILY [facility] Last Admin: 08/15/18 10:46 Dose: Not Given - Labs Labs: 08/14/18 07:00 08/14/18 07:00 PT 13.0 SECONDS (9.4-12.5) H 08/13/18 10:05 INR 1.15 08/13/18 10:05 APTT 29.9 Seconds (26.9-38.3) 08/13/18 10:05 - Constitutional Appears: Well, No Acute Distress - Head Exam Head Exam: ATRAUMATIC, NORMAL INSPECTION - Eye Exam Eye Exam: EOMI. absent: Scleral icterus - ENT Exam ENT Exam: Mucous Membranes Moist. absent: Mucous Membranes Dry - Respiratory Exam Respiratory Exam: NORMAL BREATHING PATTERN. absent: Accessory Muscle Use, Respi ratory Distress - GI/Abdominal Exam GI & Abdominal Exam: Soft, Normal Bowel Sounds. absent: Bruit, Distended, Firm, Guarding, Rigid, Tenderness, Mass, Organomegaly, Pulsatile Mass Assessment and Plan - Assessment and Plan (Free Text) Assessment: 63 yo M with PMH of CVA, HTN, HLD, and colon perforation presents to [facility] for [facility]. GI was consulted accordingly. 1. GI bleed: Likely due to anal/rectal mass seen on CSPY 08/15/18 +/- internal hemorrhoids 2. H/o CVA on antiplatelet medication 3. H/o [place]-colonic anastamosis for perf colon? Plan: - Neuro consult to assess anti-plt regimen - Restart ASA 81 mg daily, hold other anti-platelets for now - Pt to have outpatient EGD+EUS and Flex Sig next week, anticipate 08/22/18 - Chest CT w/o contrast to eval for possible mets results pending - Further medical management per primary Pt seen and examined with Dr. Garcia; please see attestation for further rec/changes <Tina Garcia V - Last Filed: 08/16/18 23:50> Objective - Vital Signs/Intake and Output Vital Signs (last 24 hours): Temp Pulse Resp BP Pulse Ox 97.1 F L 49 L 20 118/84 96 08/16/18 12:00 08/16/18 12:00 08/16/18 12:00 08/16/18 12:00 08/16/18 06:00 Intake and Output: 08/16/18 08/17/18 18:59 06:59 Intake Total 630 Output Total 600 Balance 30 - Labs Labs: 08/14/18 07:00 08/14/18 07:00 PT 13.0 SECONDS (9.4-12.5) H 08/13/18 10:05 INR 1.15 08/13/18 10:05 APTT 29.9 Seconds (26.9-38.3) 08/13/18 10:05 Attending/Attestation - Attestation I have personally seen and examined this patient.: Yes I have fully participated in the care of the patient.: Yes I have reviewed all pertinent clinical information, including history, physical exam and plan: Yes Notes (Text): This is an addendum to GI progress report dictated by the GI Fellow. The patient was seen and examined earlier. Medical records, lab studies, imagings were reviewed. Last 24 hours events reviewed. Agreed with the above treatment plan as outlined in GI Fellow 's notes with the addition of the following discussed with the patient at length Advised to take baby aspirin regula Continue Protonix 40 mg daily Patient is scheduled for when flexing and biopsy of the renal lesion, EGD and biopsy and endoscopic ultrasound to revaluate the sub-epithelial lesion, gastric ulcer for biopsy Patient was advised to come to hospital for any significant bleeding recurs 08/16/18 23:46
--- NOTE | 2018-08-16 11:57 | CP.PCM.PN ---
Subjective - Date & Time of Evaluation Date of Evaluation: 08/16/18 Time of Evaluation: 11:54 - Subjective Subjective: Surgery Progress note- Dr. Fletcher Patient seen and examined at bedside. No new complaints. pt is s/p EGD and colonoscopy yesterday by GI. No active bleeding, gastritis and duodenal ulcers noted. No biopsies were taken due to patient being on blood thinners. + BM and flatus, no blood per rectum. Objective - Vital Signs/Intake and Output Vital Signs (last 24 hours): Temp Pulse Resp BP Pulse Ox 97.7 F 76 18 135/80 96 08/16/18 06:00 08/16/18 10:18 08/16/18 06:00 08/16/18 10:18 08/16/18 06:00 Intake and Output: 08/16/18 08/16/18 06:59 18:59 Intake Total 930 Output Total 604 Balance 326 - Medications Medications: Current Medications Amlodipine Besylate (Norvasc) 5 mg PO DAILY [facility] Last Admin: 08/16/18 10:18 Dose: 5 mg Atorvastatin Calcium (Lipitor) 20 mg PO DIN [facility] Last Admin: 08/15/18 17:08 Dose: Not Given Lisinopril (Zestril) 2.5 mg PO DAILY [facility] Last Admin: 08/16/18 10:18 Dose: 2.5 mg Metoprolol Tartrate (Lopressor) 50 mg PO DAILY [facility] Last Admin: 08/16/18 10:18 Dose: 50 mg Polyethylene Glycol (Miralax) 17 gm PO DAILY [facility] Last Admin: 08/15/18 10:46 Dose: Not Given - Labs Labs: 08/14/18 07:00 08/14/18 07:00 PT 13.0 SECONDS (9.4-12.5) H 08/13/18 10:05 INR 1.15 08/13/18 10:05 APTT 29.9 Seconds (26.9-38.3) 08/13/18 10:05 - Constitutional Appears: Non-toxic, No Acute Distress - Head Exam Head Exam: ATRAUMATIC - Eye Exam Eye Exam: EOMI. absent: Scleral icterus - ENT Exam ENT Exam: Mucous Membranes Moist - Respiratory Exam Respiratory Exam: Accessory Muscle Use, Respiratory Distress. absent: NORMAL BREATHING PATTERN - Cardiovascular Exam Cardiovascular Exam: absent: Bradycardia, Tachycardia - GI/Abdominal Exam GI & Abdominal Exam: Soft. absent: Distended, Firm, Guarding, Rigid, Tenderness - Extremities Exam Extremities Exam: absent: Calf Tenderness - Neurological Exam Neurological Exam: Alert, Awake, Oriented x3 - Skin Skin Exam: Intact, Warm Assessment and Plan - Assessment and Plan (Free Text) Assessment: 63M hx of multiple CVA on multiple blood thinners initially w/ bright red blood per rectum, currently resolved; s/p EGD and colonoscopy showed duodenal ulcers, no active bleeding, polypiod lesion in rectum. No biopsied taken due to being on AC. Plan: - monitor H/H - no acute surgical intervention indicated at this time - continued management per primary team - further recs per Dr. Fletcher residential team leader [facility] PGY2
[2018-08-16 12:31] VITALS: BP 118/84; PULSE 49; RESP 20; TEMP 97.1
--- NOTE | 2018-08-16 14:11 | CT ---
Date of service: 08/16/2018 PROCEDURE: CT Chest without contrast HISTORY: Rectal/Anal mass; assess for possible mets COMPARISON: None available. TECHNIQUE: Contiguous axial images were obtained through the chest without intravenous contrast enhancement. Sagittal and coronal reconstructions were performed. Radiation dose (DLP): 869.43 mGy-cm. This CT exam was performed using one or more of the following dose reduction techniques: Automated exposure control, adjustment of the mA and/or kV according to patient size, and/or use of iterative reconstruction technique. FINDINGS: LUNGS: No infiltrate. No pulmonary mass. Minimal linear fibrotic scar both upper lobes. MEDIASTINUM: Mild aneurysmal dilatation of the ascending thoracic aorta to a diameter of approximately 4.2 cm. Mild cardiomegaly. Coronary arterial calcification. No pericardial effusion. Main pulmonary artery unremarkable. No vascular congestion. No lymphadenopathy. There is atherosclerotic calcification of the thoracic aorta. There is a small hiatal hernia. PLEURA: No pleural fluid. No pneumothorax. BONES: No fracture. No destructive lesion. UPPER ABDOMEN: Incidental duodenal diverticulum at the level of the ampulla of Vater. No other significant abnormality. OTHER FINDINGS: None. IMPRESSION: No evidence of pulmonary metastasis small hiatal hernia. Mild aneurysmal dilatation of the ascending thoracic aorta.
--- NOTE | 2018-08-16 15:45 | DS ---
DATE: 08/16/2018 SUBJECTIVE: The patient is 63 years old, seen and examined, had diagnostic colonoscopy done yesterday, was found to have internal hemorrhoid and has 25-mm polypoid lesion at the anal verge, and since the patient has been on antiplatelet, biopsy was not taken, it was diagnostic colonoscopy. PHYSICAL EXAMINATION: GENERAL: On examination today, the patient is awake, alert, oriented, able to communicate. VITAL SIGNS: He is afebrile, pulse 76, respiration 18, blood pressure 135/80. LUNGS: Bilateral fair air flow. No rhonchi or crackle. HEART: S1 and S2 audible. ABDOMEN: Soft, nontender, no rebound, no guarding. NEUROLOGIC: The patient is awake, alert, oriented, able to communicate, ambulatory. LABORATORY DATA: He has no new lab today. ASSESSMENT: 1. Rectal bleeding. 2. Anal mass. 3. History of hypertension. 4. History of cerebrovascular accident. History of multiple CVA in the past, was on antiplatelet therapy. Spoke to Dr. Miller, who state that because of his two previous strokes, he was put on double therapy, but it is okay to hold for 5 to 10 days and he gave okay to go ahead and do the biopsy. 5. History of colorectal multiple surgeries. PLAN: We will keep the patient on soft diet. We will discontinue telemetry. We will hold his aspirin another day and we will discharge the patient after he has biopsy done tomorrow. We will watch for bleeding and discharge him on oral antiplatelet and further management will be done as outpatient. At this point, the patient does not want to delay any further. He want to get to the bottom of the problem. He does not want to go to other doctor and he would rather have his workup completed here. Adalberto Fraser MD
--- NOTE | 2018-08-17 00:24 | CON ---
DATE: 08/16/2018 HISTORY OF PRESENT ILLNESS: This is a 63-year-old male who came to the emergency room with complaint of rectal bleeding and abdominal discomfort. The patient has a history of hemorrhoid and had CVA, hypertension, hyperlipidemia, and . PAST MEDICAL HISTORY: CVA, hypertension, and hyperlipidemia. ALLERGIES: NOT TO ANY MEDICATIONS. HOME MEDICATIONS: Aggrenox, aspirin, Norvasc, metoprolol, lisinopril, atorvastatin, and Plavix. SOCIAL HISTORY: He does not smoke. Does not drink. PHYSICAL EXAMINATION: HEENT: Normocephalic and atraumatic. NECK: Supple. NEUROLOGIC: Awake and oriented to self and place. Cranial nerves II through XII are tested. Pupils reactive. Spontaneous movement of extremities noted. Deep tendon reflexes 1+. Both plantars are downgoing. Sensory appears intact. Cerebellar gait deferred. IMPRESSION AND PLAN: The patient came with rectal bleed and also has a history of colorectal cancer and history of cerebrovascular accidents. We will continue hold antiplatelets and workup for gastrointestinal bleed. Continue present management. We will follow up. Donell Gomes MD
== END 2018-08-16 15:58 | disposition home or self-care (01) | DRG 378 ==
LOC: ED 09:32 → ERH 14:52 → 2RNO 17:51
PROVIDERS: ADMIT Internal Medicine; ATTEND Internal Medicine
PROC: 0DJD8ZZ Inspection of Lower Intestinal Tract, Via Natural or Artificial Opening Endoscopic (ICD-10-PCS; principal; 2018-08-15 15:00)
PROC: 0DJ08ZZ Inspection of Upper Intestinal Tract, Via Natural or Artificial Opening Endoscopic (ICD-10-PCS; 2018-08-15 15:00)
DX: K62.5 Hemorrhage of anus and rectum (principal); K25.9 Gastric ulcer, unspecified as acute or chronic, without hemorrhage or perforation; Q43.8 Other specified congenital malformations of intestine; K64.8 Other hemorrhoids; K62.0 Anal polyp; I10 Essential (primary) hypertension; E78.5 Hyperlipidemia, unspecified; Z86.73 Personal history of transient ischemic attack (TIA), and cerebral infarction without residual deficits; K59.00 Constipation, unspecified; Z79.02 Long term (current) use of antithrombotics/antiplatelets; Z79.82 Long term (current) use of aspirin; Z79.899 Other long term (current) drug therapy; Z85.048 Personal history of other malignant neoplasm of rectum, rectosigmoid junction, and anus

== ENCOUNTER 2018-08-22 12:37 | Day surgery (SDC) | payer BC ==
[2018-08-22 10:47] VITALS: BMI 33.5
[2018-08-22 13:34] LABS: BASO # 0.02 K/mm3 (0.0-2.0); BASO % 0.2 % (0.0-3.0); EOS # 0.1 (0.0-0.7); EOS % 1.3 % (1.5-5.0); MEAN CELL VOLUME 83.4 fl (80.0-105.0); MEAN CORPUSCULAR HEMOGLOBIN 27.9 pg (25.0-35.0); MEAN CORPUSCULAR HGB CONC 33.5 g/dl (31.0-37.0); MEAN PLATELET VOLUME 8.9 fl (7.0-11.0); MONO # 0.8 (0.1-0.6); MONO % 8.2 % (1.0-6.0); RBC 5.73 10^6/uL (3.5-6.1); RED CELL DISTRIBUTION WIDTH 12.8 % (11.5-14.5); WHITE BLOOD COUNT 10.1 10^3/uL (4.5-11.0)
[2018-08-22 13:42] LABS: INR 1.26; PARTIAL THROMBOPLASTIN TIME 32.2 Seconds (26.9-38.3)
[2018-08-22 13:53] LABS: ALB/GLOB RATIO 1.3 (1.1-1.8); ALT/SGPT 20 U/L (7-56); AMYLASE 50 U/L (35-125); AST/SGOT 27 U/L (17-59); BLOOD UREA NITROGEN 20 mg/dL (7-21); CALCIUM 9.1 mg/dL (8.4-10.5); GAMMA GLUTAMYL TRANSPEPTIDASE 22 U/L (8-78); GFR NON-AFRICAN AMERICAN > 60; LIPASE 39 U/L (23-300)
[2018-08-22] MEDS ORDERED: Propofol 10 mg/ml Inj (20 ML) ONE ×2 (15:21→16:31)
[2018-08-22] MEDS ORDERED: Phenylephrine 10 mg/ml Inj ONE (17:12)
[2018-08-22] MEDS ORDERED: ePHEDrine 50 mg/ml Inj ONE (17:12)
[2018-08-22] MEDS ORDERED: Sodium Chloride 0.9% 1,000 ML IV SCH (17:30)
[2018-08-22 18:25] VITALS: RESP 16; TEMP 97.8
[2018-08-22 19:36] VITALS: BP 100/70; PULSE 66; O2SAT 99
== END 2018-08-22 19:25 | disposition home or self-care (01) ==
LOC: ENDO 12:37 → MERGE 14:00 → ENDO 19:25
PROVIDERS: ATTEND Internal Medicine Gastroenterology
DX: D01.3 Carcinoma in situ of anus and anal canal (principal); A63.0 Anogenital (venereal) warts; K25.9 Gastric ulcer, unspecified as acute or chronic, without hemorrhage or perforation; K57.10 Diverticulosis of small intestine without perforation or abscess without bleeding; K20.9 Esophagitis, unspecified
CPT/HCPCS: 36415; 43239; 43259; 45331; 80053; 82150; 82977; 83690; 85025; 85610; 85730; J2001; J2370; J2704; J3010; J7030; J7040

== ENCOUNTER 2018-08-31 06:58 | Outpatient (CLI) | payer BC | END 2018-08-31 06:59 | disposition home or self-care (01) | LOC: RAD 06:58 ==

== ENCOUNTER 2018-09-24 07:03 | Outpatient (CLI) | payer BC | END 2018-09-24 07:04 | disposition home or self-care (01) | LOC: RAD 07:03 ==

== ENCOUNTER 2018-10-20 02:45 | Observation (INO) | payer BC ==
[2018-10-20 02:57] VITALS: BMI 30.7
--- NOTE | 2018-10-20 03:06 | ED PDOC ---
Arrival/HPI - General Chief Complaint: GI Problem Time Seen by Provider: 10/20/18 02:57 Historian: Patient - History of Present Illness Narrative History of Present Illness (Text): 10/20/18 03:05 A 63 year old male, whose past medical history includes CVA , sepsis, colorectal surgery s/p colon rupture, and hemorrhoids, presents to the emergency room complaining of rectal bleeding since earlier tonight. Patient notes the blood he noticed was red blood with no clots. Patient reports he had a surgery to the same area 2 weeks ago and some leaking had occurred since then. Patient states he went to sleep earlier tonight when he noticed bleeding and promptly called EMS. Patient denies any abdominal pain, dizziness, or any other complaints. PMD: Dr. Fraser Gastro: Dr. Garcia Time/Duration: 4-6 hours Symptom Onset: Gradual Symptom Course: Unchanged Activities at Onset: Light Context: Home Past Medical History - Provider Review Nursing Documentation Reviewed: Yes - Cardiac Hx Cardiac Disorders: Yes Hx Hypertension: Yes Hx Pacemaker: No - Pulmonary Hx Respiratory Disorders: No - Neurological HX Cerebrovascular Accident: Yes Other/Comment: Left hemorrhagic stroke-2008. right ischemic stroke-2012 - HEENT Hx HEENT Disorder: No - Renal Hx Renal Disorder: No - Endocrine/Metabolic Hx Endocrine Disorders: No - Hematological/Oncological Hx Blood Transfusions: No Hx Blood Transfusion Reaction: No - Integumentary Hx Dermatological Disorder: No - Musculoskeletal/Rheumatological Hx Musculoskeletal Disorders: No - Gastrointestinal Hx Gastrointestinal Disorders: No - Genitourinary/Gynecological Hx Genitourinary Disorders: No - Psychiatric Hx Emotional Abuse: No Hx Physical Abuse: No Hx Substance Use: No - Surgical History Other/Comment: GI Tract Surgery - 10/08/2018. - Anesthesia Hx Anesthesia Reactions: No Hx Malignant Hyperthermia: No - Suicidal Assessment Feels Threatened In Home Enviroment: No Family/Social History - Physician Review Nursing Documentation Reviewed: Yes Family/Social History: No Known Family HX Smoking Status: Never Smoked Hx Alcohol Use: No Hx Substance Use: No Allergies/Home Meds Allergies/Adverse Reactions: Allergies No Known Allergies Allergy (Verified 08/21/18 10:13) Home Medications: Home Meds Medication Instructions Recorded Confirmed Clopidogrel [Plavix] 75 mg PO DAILY 02/23/15 10/20/18 Lisinopril/Hydrochlorothiazide 1 tab PO DAILY 02/23/15 10/20/18 [Lisinopril-Hctz 20-12.5 mg Tab] Atorvastatin [Lipitor] 20 mg PO DAILY 08/13/18 10/20/18 amLODIPine [Norvasc] 5 mg PO DAILY 08/13/18 10/20/18 Review of Systems - Review of Systems Gastrointestinal: absent: Abdominal Pain Genitourinary Male: Other (rectal bleeding) Neurological: absent: Dizziness Physical Exam - Physical Exam Narrative Physical Exam (Text): 10/20/18 03:05 Gen: VS reviewed, alert, well developed, well nourished, nontoxic, mild distress. ENT: normal pharynx. Eye: EOMI, PERRL. Neck: no JVD, supple, no adenopathy. CV: regular rate, regular rhythm, no rubs, no murmur, no gallops, S1, S2, pulses equal and strong. Pulm: no distress, clear to auscultation, no wheeze, no rhonchi, breath sounds equal, no rales. Abd: cholostomy bag in place, clean, dry, intact, midline lower abdominal surgical wound, well healing, non tender Ext: no edema. Rectal: (counter manager Nurse Aimee) multiple surgical sutures seen with active rectal bleeding, unable to localize area of bleeding. Skin: good color, no rash, no cyanosis. Psych: responds appropriately to questions, normal affect. Neuro: oriented x 3, CN2-12 intact grossly, motor intact, sensation intact. Vital Signs Reviewed: Yes Vital Signs Temp Pulse Resp BP Pulse Ox 10/20/18 02:57 98.2 F 77 18 142/62 99 Temperature: Afebrile Blood Pressure: Normal Pulse: Regular Respiratory Rate: Normal Appearance: Positive for: Well-Appearing Mental Status: Positive for: Alert and Oriented X 3 Medical Decision Making ED Course and Treatment: 10/20/18 03:05 Impression: 63 year old male presenting to the emergency room complaining of rectal bleeding. Plan: -- Type and screen -- EKG -- CBC -- COAGs -- Aminophylline -- Reassess and disposition Prior Visits: Notes and results from previous visits were reviewed. Progress Notes: 10/20/18 03:00 case discussed with vice president of communications, will see pt in consultation 10/20/18 04:18 approximately 1000mg of TXA soaked gauzes were packed at the anal verge, cover placed. patient tolerated procedure well. 10/20/18 04:[address] fraser, patient to be admitted for postop rectal bleeding.consults to dr. garcia and general surgery. vitals stable and Hb no rmal. - EKG Interpretation EKG Interpretation (Text): 10/20/18 04:28 EKG: Ordered, reviewed, and independently interpreted the EKG. Rate : 73 BPM Rhythm : NSR Interpretation : Normal intervals. Interpreted by ED Physician: Yes - Scribe Statement The provider has reviewed the documentation as recorded by the Kassandraibe Gianna Palma All medical record entries made by the Scribe were at my direction and personally dictated by me. I have reviewed the chart and agree that the record accurately reflects my personal performance of the history, physical exam, medical decision making, and the department course for this patient. I have also personally directed, reviewed, and agree with the discharge instructions and disposition. Disposition/Present on Arrival - Present on Arrival Any Indicators Present on Arrival: No History of DVT/PE: No History of Uncontrolled Diabetes: No Urinary Catheter: No History of Decub. Ulcer: No History Surgical Site Infection Following: None - Disposition Have Diagnosis and Disposition been Completed?: Yes Diagnosis: Post-operative hemorrhage Disposition: HOSPITALIZED Disposition Time: 04:25 Patient Plan: Observation Patient Problems: Current Active Problems Problem Status Onset Post-operative hemorrhage Acute Condition: STABLE Referrals: Adalberto Fraser MD [Primary Care Provider] - Follow up with primary Forms: [employer] IP (Polish)
[2018-10-20] MEDS ORDERED: Aminophylline 25 mg/ml Inj IVP ONE (03:14)
[2018-10-20] MEDS ORDERED: Tranexamic Acid 2,000 MG in Sodium Chloride 0.9% 100 ML IVPB STA (03:43)
[2018-10-20 04:03] LABS: BASO # 0.05 K/mm3 (0.0-2.0); BASO % 0.5 % (0.0-3.0); EOS # 0.8 (0.0-0.7); EOS % 8.2 % (1.5-5.0); HEMOGLOBIN 14.3 g/dL (14.0-18.0); LYMPH # 1.9 (1.2-3.4); LYMPH % 19.2 % (22.0-35.0); MEAN CELL VOLUME 82.5 fl (80.0-105.0); MEAN CORPUSCULAR HGB CONC 32.7 g/dl (31.0-37.0); MEAN PLATELET VOLUME 8.6 fl (7.0-11.0); MONO # 0.8 (0.1-0.6); MONO % 7.6 % (1.0-6.0); RBC 5.3 10^6/uL (3.5-6.1); RED CELL DISTRIBUTION WIDTH 13.1 % (11.5-14.5); WHITE BLOOD COUNT 10.1 10^3/uL (4.5-11.0)
[2018-10-20 04:07] LABS: INR 1.23; PARTIAL THROMBOPLASTIN TIME 30.3 Seconds (26.9-38.3); PROTHROMBIN TIME 13.6 SECONDS (9.4-12.5)
[2018-10-20 04:42] LABS: BLOOD UREA NITROGEN 19 mg/dL (7-21); CALCIUM 8.9 mg/dL (8.4-10.5); GFR NON-AFRICAN AMERICAN > 60
--- NOTE | 2018-10-20 06:30 | CP.PCM.CON ---
History of Present Illness - History of Present Illness History of Present Illness: General Surgery Consult Note for Dr. Leigh Consult: Rectal bleed HPI: 63 year old male, past medical history significant for rectal cancer s/p diverting colostomy (10/08/18 at [facility], Dr. Florence colorectal surgeon), colonic rupture x2 (8 years ago) with two temporary colostomies that were reversed, consulted general surgery for new onset rectal bleeding. Patient had his most recent surgery to remove unknown mass identified by his GI (Dr. Garcia) who recommended patient have it removed by colorectal surgeon. Mass located somewhere in the perirectal region, pathology unknown. Patient states after surgery the rectum and anus were packed which he removed and occasionally noticed some oozing. Last night at 10pm he went to bed and woke up at 3am with blood soaked sheets, clothes, and mattress. Patient called ambulance immediately. He denies any discomfort in the area. ROS negative except otherwise stated in HPI. PMH: See above + CVA, HTN PSH: See above + Tonsillectomy FH: Some form of hereditary soft tissue cancer SH: Quit smoking 12 years ago, Denies alcohol or illicit drug use ALL: NKDA Meds: See [facility] GI: Dr. Garcia Review of Systems - Constitutional Constitutional: absent: Chills, Fever, Weakness - EENT Eyes: absent: Blurred Vision, Change in Vision Nose/Mouth/Throat: absent: Nasal Congestion, Nasal Discharge - Cardiovascular Cardiovascular: absent: Chest Pain, Dyspnea - Respiratory Respiratory: absent: Cough, Dyspnea - Gastrointestinal Gastrointestinal: absent: Abdominal Pain, Bloating, Change in Bowel Habits, Coffee Ground Emesis, Constipation, Diarrhea, Heartburn, Hematemesis, Melena, Nausea, Vomiting - Genitourinary Genitourinary: absent: Difficulty Urinating, Dysuria - Musculoskeletal Musculoskeletal: absent: Back Pain, Neck Pain - Integumentary Integumentary: Bleeding Lesions - Neurological Neurological: absent: Confusion, Numbness - Psychiatric Psychiatric: absent: Anxiety, Depression Past Patient History - Past Medical History & Family History Past Medical History?: Yes - Past Social History Smoking Status: Never Smoked - CARDIAC Hx Cardiac Disorders: Yes Hx Hypertension: Yes Hx Pacemaker: No - PULMONARY Hx Respiratory Disorders: No - NEUROLOGICAL HX Cerebrovascular Accident: Yes Other/Comment: Left hemorrhagic stroke-2008. right ischemic stroke-2012 - HEENT Hx HEENT Problems: No - RENAL Hx Chronic Kidney Disease: No - ENDOCRINE/METABOLIC Hx Endocrine Disorders: No - HEMATOLOGICAL/ONCOLOGICAL Hx Blood Transfusions: No Hx Blood Transfusion Reaction: No - INTEGUMENTARY Hx Dermatological Problems: No - MUSCULOSKELETAL/RHEUMATOLOGICAL Hx Musculoskeletal Disorders: No - GASTROINTESTINAL Hx Gastrointestinal Disorders: No - GENITOURINARY/GYNECOLOGICAL Hx Genitourinary Disorders: No - PSYCHIATRIC Hx Emotional Abuse: No Hx Physical Abuse: No Hx Substance Use: No - SURGICAL HISTORY Other/Comment: GI Tract Surgery - 10/08/2018. - ANESTHESIA Hx Anesthesia Reactions: No Hx Malignant Hyperthermia: No Meds Allergies/Adverse Reactions: Allergies Allergy/AdvReac Type Severity Reaction Status Date / Time No Known Allergies Allergy Verified 08/21/18 10:13 Physical Exam - Constitutional Appears: Well, Non-toxic, No Acute Distress - Head Exam Head Exam: ATRAUMATIC, NORMAL INSPECTION, NORMOCEPHALIC - Eye Exam Eye Exam: EOMI - ENT Exam ENT Exam: Mucous Membranes Moist - Respiratory Exam Respiratory Exam: NORMAL BREATHING PATTERN. absent: Wheezes, Respiratory Distress - Cardiovascular Exam Cardiovascular Exam: REGULAR RHYTHM, +S1, +S2. absent: Systolic Murmur - GI/Abdominal Exam GI & Abdominal Exam: Normal Bowel Sounds, Soft. absent: Distended, Rigid, Tenderness - Rectal Exam Additional comments: Rectal bleed with clots - Back Exam Back exam: absent: CVA tenderness (L), CVA tenderness (R) - Neurological Exam Neurological exam: Alert, Oriented x3 - Psychiatric Exam Psychiatric exam: Normal Affect, Normal Mood - Skin Skin Exam: Dry, Intact, Normal Color, Warm Results - Vital Signs Recent Vital Signs: Last Vital Signs Temp 98.2 F 10/20/18 02:57 Pulse 75 10/20/18 05:05 Resp 18 10/20/18 05:05 BP 114/62 10/20/18 05:05 Pulse Ox 100 10/20/18 05:05 - Labs Result Diagrams: 10/20/18 03:28 10/20/18 03:30 Labs: Laboratory Results - last 24 hr 10/20/18 10/20/18 10/20/18 03:28 03:28 03:28 WBC 10.1 RBC 5.30 Hgb 14.3 Hct 43.7 MCV 82.5 MCH 27.0 MCHC 32.7 RDW 13.1 Plt Count 340 MPV 8.6 Neut % (Auto) 64.5 Lymph % (Auto) 19.2 L Stark % (Auto) 7.6 H Eos % (Auto) 8.2 H Baso % (Auto) 0.5 Lymph # (Auto) 1.9 Stark # (Auto) 0.8 H Eos # (Auto) 0.8 H Baso # (Auto) 0.05 Absolute Neuts (auto) 6.54 H PT 13.6 H INR 1.23 APTT 30.3 Sodium Potassium Chloride Carbon Dioxide Anion Gap BUN Creatinine Est GFR ( Amer) Est GFR (Non-Af Amer) Random Glucose Calcium Beta HCG, Quant < 2.39 10/20/18 03:30 WBC RBC Hgb Hct MCV MCH MCHC RDW Plt Count MPV Neut % (Auto) Lymph % (Auto) Stark % (Auto) Eos % (Auto) Baso % (Auto) Lymph # (Auto) Stark # (Auto) Eos # (Auto) Baso # (Auto) Absolute Neuts (auto) PT INR APTT Sodium 139 Potassium 3.6 Chloride 104 Carbon Dioxide 26 Anion Gap 12 BUN 19 Creatinine 0.8 Est GFR ( Amer) > 60 Est GFR (Non-Af Amer) > 60 Random Glucose 89 Calcium 8.9 Beta HCG, Quant Assessment & Plan - Assessment and Plan (Free Text) Assessment: 63M s/p diverting colostomy and rectal mass excision 10/08/18 w/ new onset rectal bleeding Plan: In ED, recommended Amicar soaked gauze placed in rectum - upon re-examination gauze was not in appropriate position and bleeding continued Removed superficial skin sutures from previous surgery (possible a transanal resection of mass) and placed pressure dressings Patient may benefit from proctoscopy to assess bleeding site however with initial surgery done recently, may warrant transfer to original surgeon for re-evaluation Monitor colostomy site and output F/u GI recommendations Will discuss further with Dr. Lu Brown PGY1
[2018-10-20] MEDS ORDERED: Potassium Chloride 20 MEQ in Dextrose 5%/0.45% NS 1,000 ML IV SCH (09:30)
[2018-10-20 09:52] LABS: HEMOGLOBIN 13.2 g/dL (14.0-18.0); MEAN CELL VOLUME 82.6 fl (80.0-105.0); MEAN CORPUSCULAR HGB CONC 32.8 g/dl (31.0-37.0); MEAN PLATELET VOLUME 8.2 fl (7.0-11.0); RBC 4.88 10^6/uL (3.5-6.1); WHITE BLOOD COUNT 12.1 10^3/uL (4.5-11.0)
[2018-10-20] MEDS ORDERED: Iohexol 350 MG/100 ML VIAL ONE (10:39)
[2018-10-20] MEDS ORDERED: Metoprolol Succinate 50 mg XL Tab PO SCH (11:30)
--- NOTE | 2018-10-20 12:03 | CT ---
Date of service: 10/20/2018 PROCEDURE: CT Abdomen and Pelvis with contrast HISTORY: rectal stump bleeding; r/o intra-abd bleeding COMPARISON: CT abdomen and pelvis with contrast performed 08/13/18 TECHNIQUE: Contrast dose: 100 mL Omnipaque 350 IV Radiation dose: Total exam DLP = 1057.59 mGy-cm. This CT exam was performed using one or more of the following dose reduction techniques: Automated exposure control, adjustment of the mA and/or kV according to patient size, and/or use of iterative reconstruction technique. FINDINGS: LOWER THORAX: No visible consolidation, pleural effusion, or pneumothorax. Small hiatal hernia/distal esophageal wall thickening. LIVER: Unremarkable. GALLBLADDER AND BILE DUCTS: Unremarkable. PANCREAS: Fatty atrophy of the pancreas. SPLEEN: Unremarkable. ADRENALS: Unremarkable. KIDNEYS AND URETERS: The kidneys enhance symmetrically. No hydronephrosis or obstructing calculus identified. VASCULATURE: No aortic aneurysm. Atherosclerotic calcifications of the aorta. BOWEL: Stomach is nondistended. Lack of oral contrast limits evaluation for bowel pathology. Left lower quadrant ostomy. Inflammatory stranding and wall thickening of bowel at the ostomy and slightly proximal which may be related to inflammatory/infectious etiologies; correlate clinically. Bowel loops appear within normal limits of caliber without evidence of obstruction. Small duodenal diverticulum noted near the pancreatic head contains air fluid. Asymmetric wall thickening involving the rectum. PERITONEUM: No significant free fluid. No definite free air. LYMPH NODES: No bulky adenopathy identified. BLADDER: Unremarkable. REPRODUCTIVE: Enlarged prostate gland measures approximately 5.1 x 6.0 cm. BONES: Degenerative changes. OTHER FINDINGS: Surgical skin elsy. IMPRESSION: Asymmetric wall thickening involving the rectum. Left lower quadrant ostomy. Inflammatory stranding and wall thickening of bowel at the ostomy and slightly proximal which may be related to inflammatory/infectious etiologies; correlate clinically. Small duodenal diverticulum noted near the pancreatic head contains air and fluid. Enlarged prostate gland. Recommend correlation with PSA. Additional findings as above.
[2018-10-20 12:32] LABS: MEAN CELL VOLUME 82.1 fl (80.0-105.0); MEAN CORPUSCULAR HEMOGLOBIN 26.7 pg (25.0-35.0); MEAN CORPUSCULAR HGB CONC 32.6 g/dl (31.0-37.0); MEAN PLATELET VOLUME 8.3 fl (7.0-11.0); RBC 4.86 10^6/uL (3.5-6.1); WHITE BLOOD COUNT 12.6 10^3/uL (4.5-11.0)
[2018-10-20 15:41] VITALS: RESP 18
--- NOTE | 2018-10-20 16:32 | HP ---
DATE OF EXAM: 10/20/2018 HISTORY OF PRESENT ILLNESS: The patient is 63-year-old who was admitted in 07/2018 with rectal bleed at that point, he was evaluated by Dr. Garcia since he was on Plavix. He was discharged and brought back for colonoscopy and was found to have rectal mass, biopsy was done that shows high grade squamous intraepithelial lesion, severe dysplasia and cyto carcinoma so the patient was referred to [facility], where he had surgical excision done along with the colostomy 2 weeks ago, the patient was admitted on previous Monday to and he was discharge home and he did well, but last night when he woke up he saw blood on his bed sheet and so he called ambulance and he came to emergency room for further evaluation. The patient had diversion colostomy done on 10/08/2018 by . PAST MEDICAL HISTORY: Significant for, 1. Colonic rupture 8 years ago with 2 temporary colostomies, they were reversed also. 2. History of CVA in the past, has been on Plavix aspirin. 3. Hypertension. 4. Hyperlipidemia. PAST SURGICAL HISTORY: Significant for tonsillectomy two partial colectomy followed by colostomies. 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 He used to be smoker, quit 12 years ago. He socially drinks. ALLERGIES: HE IS NOT ALLERGIC TO ANY MEDICATION: HOME MEDICATIONS: He is on amlodipine 5 mg daily, omeprazole 20 mg daily, metoprolol 50 mg daily, lisinopril 20 mg daily, Plavix 75 daily and atorvastatin 20 mg daily. PHYSICAL EXAMINATION: GENERAL: He is awake, alert and able to communicate. VITAL SIGNS: He is afebrile. Pulse 75, respiration 18 and blood pressure 114/62. LUNGS: Bilateral fair airflow. No rhonchi or crackle. HEART: S1 and S2, audible. ABDOMEN: Soft. He had dressing by Dr. Leigh's team. He still has scant bleeding. LABORATORY DATA: WBC 12.1, hemoglobin 13.2, hematocrit 40.3 and platelet 314. Chemistries; sodium 139, potassium 3.6, chloride 104, CO2 of 26, BUN 19, creatinine 0.8 and blood sugar of 89. CT scan of the abdomen and pelvis done, results are pending. ASSESSMENT: 1. Rectal bleeding. 2. Recent surgical excision of rectal mass followed by diversion colostomy. 3. Hypertension. 4. History of cerebrovascular accident. 5. Leukocytosis. PLAN: We will continue the patient on IV fluids. We will resume his medication including atorvastatin, amlodipine, metoprolol, give him aspirin but we will hold Plavix for now. Discussed with Dr. Garcia. The surgical team has reached out to in [place] and the patient will be transferred to [place] for further close monitoring and intervention. Adalberto Fraser MD
[2018-10-20 18:16] LABS: MEAN CELL VOLUME 83.3 fl (80.0-105.0); MEAN CORPUSCULAR HEMOGLOBIN 26.7 pg (25.0-35.0); MEAN PLATELET VOLUME 8.5 fl (7.0-11.0); RBC 4.5 10^6/uL (3.5-6.1); RED CELL DISTRIBUTION WIDTH 13.1 % (11.5-14.5); WHITE BLOOD COUNT 12.6 10^3/uL (4.5-11.0)
--- NOTE | 2018-10-20 21:00 | CARD ---
APPROVED REPORT Date of service: 10/20/2018 EKG Measurement Heart [id number] <Conclusion> Normal sinus rhythm Normal ECG
[2018-10-20 22:17] LABS: HEMOGLOBIN 12.1 g/dL (14.0-18.0); MEAN CELL VOLUME 83.6 fl (80.0-105.0); MEAN CORPUSCULAR HEMOGLOBIN 26.8 pg (25.0-35.0); MEAN CORPUSCULAR HGB CONC 32.1 g/dl (31.0-37.0); MEAN PLATELET VOLUME 8.2 fl (7.0-11.0); RBC 4.51 10^6/uL (3.5-6.1); RED CELL DISTRIBUTION WIDTH 13.1 % (11.5-14.5); WHITE BLOOD COUNT 14.1 10^3/uL (4.5-11.0)
--- NOTE | 2018-10-20 22:31 | CON ---
DATE: 10/20/2018 This patient was seen and evaluated earlier. REASON FOR CONSULTATION: Bleeding per rectum. 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 Mike Florence, admitted with bleeding per rectum starting from last night. The patient was doing well until this episode. No vomiting blood. The patient did have a full colonoscopy before and no other lesion noticed except this large condyloma with this anal lesion. The patient has a history of CVA in the past, was on Plavix and aspirin at home. PAST MEDICAL HISTORY: Significant as above. 1. History of colonic perforation status post colostomy then reversal about 8 years ago. 2. History of CVA, the patient is on Plavix and aspirin. 3. Hypertension. 4. Dyslipidemia. PAST SURGICAL HISTORY: As above. History of colon surgery done for the colon perforation, colostomy and reversal done. 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 Ex-smoker. Alcohol socially. ALLERGIES: DENIES ANY ALLERGIC REACTION. FAMILY HISTORY: Noncontributory. REVIEW OF SYSTEMS: Positive above. PHYSICAL EXAMINATION GENERAL: The patient is lying on the bed, not in acute distress. VITAL SIGNS: Pulse 74, blood pressure 118/84, temperature is 99, respirations 18, and O2 saturation 97%. HEENT: Atraumatic and anicteric. NECK: Supple. HEART: S1, S2 heard. LUNGS: Bilaterally air entry present. ABDOMEN: Soft. No tenderness present. EXTREMITIES: The patient did have a dressing of the wound. LABORATORY DATA: Hemoglobin 13.2, hematocrit 40.3, WBC 12.1, platelets 314. The CT scan was reviewed. IMPRESSION: 1. Condyloma with anal carcinoma status post excision and also diverting colostomy, now admitted with bleeding from this surgical site. The patient had a wound dressing done and the patient had been contacted by the surgical team to [facility], awaiting for transfer. 2. History of transient ischemic attack on Plavix. 3. Pancreatic small cystic lesions. 4. The patient does have a history of gastric ulcer and also grade B esophageal ulcer, esophagitis. RECOMMENDATIONS: 1. Would recommend to continue the PPI. 2. The patient to present surgical management for the rectal bleeding as it is postop. 3. The patient may benefit from repeating endoscopy to further evaluate the healing of the ulcer ad also we can evaluate with the repeat EUS to evaluate the pancreatic cystic lesions. Thank you very much for allowing us to participate in the care of the patient. Tina Garcia MD
[2018-10-20 22:33] VITALS: BP 123/83; PULSE 69; TEMP 98.5; O2SAT 96
== END 2018-10-20 23:00 | disposition short-term general hospital (02) ==
LOC: ED 02:45 → ERH 04:25 → 5RNO 05:40
PROVIDERS: ADMIT Internal Medicine; ATTEND Internal Medicine
DX: K62.5 Hemorrhage of anus and rectum (principal); C21.0 Malignant neoplasm of anus, unspecified; I10 Essential (primary) hypertension; E78.5 Hyperlipidemia, unspecified; Z86.73 Personal history of transient ischemic attack (TIA), and cerebral infarction without residual deficits; Z79.82 Long term (current) use of aspirin; Z79.02 Long term (current) use of antithrombotics/antiplatelets; Z93.3 Colostomy status; D72.829 Elevated white blood cell count, unspecified; K64.9 Unspecified hemorrhoids; Z79.899 Other long term (current) drug therapy; Z87.11 Personal history of peptic ulcer disease; Z87.19 Personal history of other diseases of the digestive system; Z87.891 Personal history of nicotine dependence
CPT/HCPCS: 36430; 74177; 80048; 84702; 85025; 85027; 85610; 85730; 86850; 86900; 93005; 96374; 99284; G0378; J7042; P9035; Q9967